=== PATIENT | female | born 1955 | race Caucasian/White ===

== ENCOUNTER 2024-08-05 09:26 | Inpatient (IN) | payer MEDICARE, SELFPAY ==
[2024-08-05] VITALS (11 sets, daily range): BP systolic 91–124; BP diastolic 53–82; PULSE 83–128; RESP 16–23; TEMP 36.3–36.4; O2SAT 97–100; BMI 15.5
--- NOTE | ~2024-08-05 | CT_ITS ---
CLINICAL INDICATION: Sepsis COMPARISON: None. TECHNIQUE: An enhanced CT of the abdomen and pelvis was performed utilizing multislice spiral [place] ue reconstructed at 5 mm slice thickness. Coronal and sagittal reconstructions were performed. This CT examination was performed utilizing dose reduction techniques. DLP: 256 mGy-cm FINDINGS/OBSERVATIONS: Lung: The lungs are clear. The heart chambers are of normal size, without pericardial effusion. Mediastinum: Multilobulated contrast enhancing mass within the superior mediastinum, corresponding to the abnormal ity seen on the today's plain radiograph. This focus appears separate from the thyroid gland (which is heterogeneous on the left, but otherwise unremarkable). This mass measures 6.4 x 4.6 x 9.3 cm (anterior to posterior x medial to lateral x cranial to caudal dimension). Extensive mediastinal lymphadenopathy is also identified extending into the right hilum and within th e subcarinal station. Soft tissues of the chest: Unremarkable. Bones of the chest: No acute fracture. No lytic or blastic lesions are identified. Liver: The liver enhances homogeneously and is not enlarged. Gallbladder and biliary system: The gallbladder is minimally distended, but otherwise unremarkable. Pancreas: The pancreas enhances homogeneously, without ductal dilatation. Spleen: The spleen enhances heterogeneously, likely secondary to bolus timing and is not enlarged. 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 The kidneys enhance homogeneously with scattered nonob structing calcifications. Adrenal glands: Unremarkable. Gastrointestinal tract: Fecal stasis is present within the colon, extending and distending the rectum with surrounding inflam matory change, findings consistent with fecal impaction. Vasculature: Trace calcified atherosclerotic disease is present. No aneurysmal dilatation. Lymph nodes: Scattered nonpathologically enlarged lymph nodes within the root of the mesentery and deep in the pel vis. Pelvic structures: The bladder is decompressed, limiting its evaluation. The uterus is not visualized. Body wall and musculoskeletal: Age appropriate degenerative disease within the thoracic and lumbosacral spine. IMPRESSION: Large middle mediastinal mass containing bulky calcifications and demonstrating contrast enhancement. Significant lymphadenopathy is identified within the right supraclavicular lymph node station. Right hilar lymphadenopathy is also noted. Scattered pathologically enlarged and morphologically suspicious lymph nodes within the base of the n viktoria. The left lobe of the thyroid gland is heterogeneous and contains bulky calcifications. Findings within the pelvis suggesting fecal impaction, as detailed above. Reviewed, dictated and finalized at location A. IMPRESSION: Large middle mediastinal mass containing bulky calcifications and demonstrating contrast enhancement. Significant lymphadenopathy is identified within the right supraclavicular lymp h node station. Right hilar lymphadenopathy is also noted. Scattered pathologically enlarged and morphologically suspicious lymph nodes wi thin the base of the neck. The left lobe of the thyroid gland is heterogeneous and contains bulky calcific ations. Findings within the pelvis suggesting fecal impaction, as detailed above.
--- NOTE | ~2024-08-05 | US_ITS ---
EXAMINATION: US biopsy lymph node DATE: 08/07/2024 12:59 INDICATION: Right supraclavicular lymphadenopathy TECHNIQUE: The procedure including the risks and benefits was discussed with the patient. Risks discu ssed included bleeding and infection. The patient understood the risks and agreed to proceed. The sk in overlying the right supraclavicular region was prepped and draped in usual sterile fashion. Anest hetic was administered with 1% lidocaine subcutaneously. An 18 gauge core biopsy needle was advanced under continuous ultrasound observation to the lesion of interest. 8 core biopsy specimens were obt ained, 5 placed in RPMI media and 3 in formalin. The needle was removed and the entry site was clean ed and dressed. Post procedure ultrasound demonstrated no hemorrhage. FINDINGS: Ultrasound images demonstrate biopsy needle advanced into a 4.2 x 2.2 x 2.6 cm right suprac lavicular lymph node. IMPRESSION: 1. Successful Ultrasound-guided biopsy of 4.2 x 2.2 x 2.6 cm right supraclavicular lymph node. Reviewed, dictated and finalized at location A. IMPRESSION: 1. Successful Ultrasound-guided biopsy of 4.2 x 2.2 x 2.6 cm right supraclavicu lar lymph node.
--- NOTE | ~2024-08-05 | XR_ITS ---
CHEST RADIOGRAPH, PA AND LATERAL CLINICAL HISTORY: weakness . COMPARISON: None available TECHNIQUE: PA and lateral views of the chest. FINDINGS Asymmetric enlargement of the superior mediastinum, right greater than left. The remainder of the cardiomediastinal silhouette is otherwise unremarkable. The lungs are clear. IMPRESSION: No focal infiltrate or effusion. Asymmetric enlargement of the superior mediastinum representing either lymphadenopathy versus intrath oracic extension of the thyroid gland for which cross-sectional imaging (noncontrast enhanced CT exam ination of the chest) may be performed for further evaluation, when the patient is clinically able. Reviewed, dictated and finalized at location A. IMPRESSION: No focal infiltrate or effusion. Asymmetric enlargement of the superior mediastinum representing either lymphade nopathy versus intrathoracic extension of the thyroid gland for which cross-sec tional imaging (noncontrast enhanced CT examination of the chest) may be perfor med for further evaluation, when the patient is clinically able.
--- NOTE | 2024-08-05 09:36 | ECG_ITS ---
Test Date: 2024-08-05 09:49:55 Measurements Intervals [place] Rate: 119 P: 75 VA: 140 QRS: 80 QRSD: 90 T: 58 QT: 315 QTc: 444 Interpretive Statements SINUS TACHYCARDIA ABNORMAL ECG No previous ECG available for comparison Electronically Signed On 08-05-2024 09:55:42 CDT by Gilberto Keating D.O.
[2024-08-05 10:15] LABS: Basophils Percent Auto 0.1 % (0.2-1.2); Eosinophils Percent Auto 0.1 % (0-4.4); Hematocrit 31.3 % (37.0-47.0); Hemoglobin 9.2 g/dL (12.0-15.0); Immature Granulocyte Absolute 0.07 K/mm3 (0.00-0.031); Immature Granulocyte Percent A 0.6 % (0-0.5); Lymphocytes Absolute Auto 0.43 K/mm3 (0.9-3.2); Lymphocytes Percent Auto 3.5 % (18.3-44.2); Mean Corpuscular HGB Conc 29.4 g/dl (32-36); Mean Corpuscular Hemoglobin 25.3 pg (26-34); Mean Corpuscular Volume 86.2 fl (80-100); Mean Platelet Volume 10.8 fl (7.4-10.4); Monocytes Absolute Auto 0.7 K/mm3 (0.1-0.6); Monocytes Percent Auto 5.5 % (2.6-8.5); Neutrophils Absolute Auto 11.2 K/mm3 (1.3-6.7); Neutrophils Percent Auto 90.2 % (45.5-73.1); Platelet Count Result 408 k/mm3 (150-375); Red Blood Count 3.63 M/mm3 (4.2-5.4); Red Cell Distribution Width 18.7 % (11.5-14.5); White Blood Count 12.4 K/mm3 (4.5-10.0)
[2024-08-05 10:27] LABS: Alanine Aminotransferase 9 U/L (6-35); Albumin Level 3.1 g/dL (3.5-5.1); Alkaline Phosphatase 189 U/L (38-126); Anion Gap 9 mmol/L (4-12); Aspartate Amino Transferase 15 U/L (14-36); Bilirubin,Total 1.3 mg/dL (0.2-1.3); Blood Urea Nitrogen 32 mg/dL (7-17); Calcium 9.4 mg/dL (8.4-10.2); Carbon Dioxide 29 mmol/L (22-30); Chloride 95 mmol/L (98-107); Estimated CRCL calculation 50 ml/min; Estimated Glomerular Filt Rate > 60; Glucose 124 mg/dL (65-110); Potassium 4.3 mmol/L (3.4-5.0); Sodium 133 mmol/L (137-145)
[2024-08-05 10:35] LABS: Platelet Estimate Increased (Adequate)
[2024-08-05 10:36] LABS: Anisocytosis 1+; Hypochromasia 1+; Microcytosis 1+ (NORMAL)
[2024-08-05 10:37] LABS: Schistocytes None Seen
--- OUTSIDE RECORDS SUMMARY | 2024-08-05 10:49 | XMS_ITS | Clinical Summary ---
Author Organization 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 Gender Identity Not on file Sexual Orientation Not on file Plan of Treatment Health Maintenance Due Date Last Done Comments Colorectal Cancer Screening Colonoscopy (10 Years) 1953 Hepatitis C 09/24/1971 DTaP, Tdap and Td Vaccines ( 1 - Tdap) 1972 Mammogram Screening 1993 Zoster Vaccines (1 of 2) 09/24/2003 Dexa Scan (General) 2018 Pneumococcal Vaccine: 50+ Ye ars (1 of 1 - PCV) 2018 COVID-19 Vaccine (2023-2 5 season) 2023 RSV Immunization or 60+ Years (1 - 1-dose 75+ series) 2028 Meningococcal B Vaccine Aged Out No l onger eligible based on patient's age to complete this topic Meningococcal Vaccine Aged Out No fitz jonas eligible based on patient's age to complete this topic RSV Immunizations Under 20 Months Aged Out No longer eligible based on patient's age to complete this topic
--- OUTSIDE RECORDS SUMMARY | 2024-08-05 10:49 | XMS_ITS | Continuity of Care Document ---
Author Organization [facility] [place] Address [address] [place] [address] Phone Care Team Providers Care Storage Garage Manager Name Role Phone Unavailable Unavailable Unavailable Allergies, Adverse Reactions, Alerts Substance Reaction Status Criticality PENICILLIN Unknown Active No Information Medications Medication Instructions Dosage Effective Dates (start - stop) Status Comments PROPRANOLOL HCL (unknown strength) Not Available - Active Procedures Procedure Date EYE EXAM, NEW PATIENT VISION REFRACTION OPTIONAL UPDATE Vision svcs frames purchases Trifocal Lens Lens Polycarb Photochromatic Tint Progressive lens per lens A/R Standard UV Lens Advance Directives Directive Yes / No Effective Date File Name No Information Encounters Encounter Description Practice Location Reason(s) For Visit Diagnoses Date Provider Providers Copied on Encounter [facility], [facility], [address], [place], [id number], [place] tel:[phone] [facility] blurred vision, glare and halos (chief complaint)b lurred vision, glare and halos (chief complaint) Myopia, bilateralAge- related nuclear cataract, right eyeCombined forms of age-related cataract, left eye No Information Family History Family Member Type Diagnosis Age At Onset Problem (finding) No family history of St roke Father Problem (finding) cataract Problem (finding) No family history of Ar thritis Mother Problem (finding) Problem (finding) No family history of He art Disease Problem (finding) No family hist ory of Macular degeneration Problem (finding) No family history of Di abetes mellitus Problem (finding) No family history of Re tinal disease Father Problem (finding) hypertension Problem (finding) No family history of Gl au[place] Problem (finding) No family history of Re spiratory disease Payers Payer name Insurance type Covered democrat ID Jodi rinaldi(s) [facility] [id number] Social History Type Description Quantity Date Captured Comments Alcohol Use Details Unknown Caffeine Use Details Unknown Tobacco Use Status Never smoked tobacco 2015 Smoking Status Never smoker Non-Smoking Tobacco Use Details : No Details Available : No Details Available Sex Female Chief Complaint And Reason For Visit From encounter dated '05/12/2015 15:30'. blurred vision, glare and halos (chief complaint). Description: The 59 Year old female presents forevaluation of blurred vision, glare and halos in the right eye and left eye. It started about 4 month(s) ago. It affects distance vision with correction OU. Pt states she noticed the change when she quit wearing her CL in Dec. Pt does not wish to continue wearing CL. The patient denies pain or discomfort OU. Pt denies eye meds or gtts OU. blurred vision, glare and halos (chief complaint) Reason For Referral Reason For Referral No Information History Of Present Illness Encounter Date Complaint History Of Prese nt Illness blurred vision, glare and halos The 59 Year old female presents for evaluation of blurred vision, glare and halos in the right eye and left eye. It started about 4 month(s) ago. It affects distance vision with correction OU. Pt states she noticed the change when she quit wearing her CL in Dec. Pt does not wish to continue wearing CL. The patient denies pain or discomfort OU. Pt denies eye meds or gtts OU. Functional Status Date Functional Assessmen t No Information Instructions Date Instruction Additional Infor fátima Impression/Plan - Ey es look healthy OU. No signs of mac degen or glaucoma. Pt has mild cataracts, we will cont to monitor. Optional gls. rx update available. RTC in 1 year unless having problems. Follow up - Return i n 1 year with [facility] for Refract T & D. 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
[2024-08-05 11:02] LABS: Bacteria Urine 4+ /hpf; Need Manual Microscopic Reviewed; RBC Urine >100 /hpf (0-2); Squamous Epithelial Cell Urine None Seen /hpf (Few); WBC Urine >100 /hpf (0-3)
--- NOTE | 2024-08-05 11:12 | ED.WEAKNESS ---
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 Patient states she has been evaluated by her PCP for her weakness and was scheduled to have outpatient CT abdomen pelvis and outpatient echocardiogram, however patient did not report to her appointments for this. When I asked her why she states ?I'm stubborn. She presents to the ED today because over the past few weeks her generalized weakness has significantly worsened. She reports dysuria that started 3 days ago, low back pain for the past several weeks she describes as burning, decreased mobility, decreased p.o. intake. She lives at home by herself. Her daughter bedside states over the past few days she has been immobile in sitting in her own urine which is abnormal for her. Denies change in mental status. The patient denies cough or congestion, chest pain or shortness of breath, neck pain, abdominal pain, N/V/D, known fevers. She does endorse a 30 lb weight loss since the fall. No personal history of cancer. Patient's daughter at bedside states the patient stop taking any of her medications including her iron supplements and antihypertensives a few months ago. Related Data Home Medications ?Medication ?Instructions ?Recorded ?Confirmed ?Last Taken ?Type No Home Medications 08/05/24 08/05/24 Unknown History Allergies Allergy/AdvReac Type Severity Reaction Status Date / Time No Known Allergies Allergy Verified 08/05/24 17:48 Review of Systems Review of Systems: All systems reviewed & are unremarkable except as noted in HPI and below PMFSH Past Medical History Medical History (Updated 08/05/24 @ 15:34 by Mary Carmen Cody PA-C) Iron deficiency anemia Hypertension Migraine headache Social History Social History (Updated 08/05/24 @ 15:35 by Mary Carmen Cody PA-C) Social History: Surrogate medical decision maker: Code status: DO NOT RESUSCITATE. Smoking status: Never smoker Alcohol intake: never Substance use: never Do You Feel Safe in your Home?: Yes Lack of Transportation: No Lack of Food: Never True Current Housing: I Have Housing Concerned About Future Housing: No Difficulty Paying Gas/Electric Bills: No Difficulty Paying for Meds: No Currently Unemployed: No Education: Decline to Answer Difficulty w/ Childcare or Family Care: No Spiritual care concerns: No Exam Narrative: GENERAL: Ill-appearing, frail, cachectic HEAD: Normocephalic, atraumatic. EYES: PERRLA and EOMI. ENT: Nares clear, no rhinorrhea or epistaxis. Mucous membranes dry NECK: Supple. No nuchal rigidity CHEST: Clear to auscultation. No respiratory distress. HEART: Regular rate and rhythm. No murmur heard. Normal peripheral pulses. ABDOMEN: Soft, nontender, nondistended, normal active bowel sounds. No rebound, guarding or rigidity EXTREMITIES: Normal range of motion. No edema. SKIN: Erythema, warmth and tenderness throughout the low back and buttock, stage 2 left ischial ulceration with cellulitic changes NEURO: No focal deficits. Alert and oriented x4 Course Vital Signs Vital signs: Vital Signs Temperature 97.4 F L 08/05/24 09:37 Pulse Rate 123 H 08/05/24 09:37 Respiratory Rate 23 H 08/05/24 09:37 Blood Pressure 102/70 08/05/24 09:37 Pulse Oximetry 100 08/05/24 09:37 Oxygen Delivery Room Air 08/05/24 09:37 Temperature 97.6 F 08/05/24 15:41 Pulse Rate 104 H 08/05/24 15:41 Respiratory Rate 19 08/05/24 15:41 Blood Pressure 108/72 08/05/24 15:41 Pulse Oximetry 99 08/05/24 15:41 Oxygen Delivery Room Air 08/05/24 09:37 MDM - Weakness MDM Narrative Medical decision making narrative: 68-year-old female with history of hypertension 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 intake, generalized malaise. See HPI for further history. Triage vitals remarkable for tachycardia 123 and tachypnea of 23. Patient is afebrile. She is cachectic and ill-appearing, lying in exam bed. A&O x4 and moving all extremities spontaneously with no lateralizing deficits. She is afebrile. She does meet SIRS criteria and was started on 30 mL/kg of fluids and broad-spectrum antibiotics. CBC with leukocytosis of 12.4, normocytic anemia with hemoglobin of 9.2 no prior for comparison. Platelets elevated at 408. Chemistries with BUN of 32, creatinine normal at 0.63. Alk-phos elevated 189, again no prior for comparison. CRP elevated to 25.2. Lactic elevated to 2.4, fluids ongoing. UA indicative of UTI with positive nitrites, greater than 100 wbc's, 3+ leuk esterase, hematuria and bacteriuria. Urine culture is pending. EKG shows sinus tachycardia rate of 119, normal CO interval, normal QRS duration, normal QTC, no ischemic changes. Troponin is undetectable. CT chest abdomen pelvis shows the following: Large middle mediastinal mass containing bulky calcifications and demonstrating contrast enhancement. Significant lymphadenopathy is identified within the right supraclavicular lymph node station. Right hilar lymphadenopathy is also noted. Scattered pathologically enlarged and morphologically suspicious lymph nodes within the base of the neck. The left lobe of the thyroid gland is heterogeneous and contains bulky calcifications. Findings within the pelvis suggesting fecal impaction, as detailed above. Patient and family updated on results heart rate has improved to 102 bpm, blood pressures improved to 105/65. Patient is uncertain of her last bowel movement. She is having abdominal pain, no obstipation. Fecal disimpaction performed with large amount of stool removed. I discussed CT findings with radiologist, Dr. Adame, who agrees to perform ultrasound guided biopsy of right supraclavicular lymph nodes tomorrow. Order has been placed. Discussed case with hospitalist DYLON Lentz who agrees to admission. Patient would like to be DNR/DNI. Lab Data 08/05/24 10:10 08/05/24 10:10 Labs: Lab Results 08/05/24 08/05/24 08/05/24 Range/Units 10:09 10:10 11:27 WBC 12.4 H (4.5-10.0) K/mm3 RBC 3.63 L (4.2-5.4) M/mm3 Hgb 9.2 L (12.0-15.0) g/dL Hct 31.3 L (37.0-47.0) % MCV 86.2 (80-100) fl MCH 25.3 L (26-34) pg MCHC 29.4 L (32-36) g/dl RDW 18.7 H (11.5-14.5) % Plt Count 408 H (150-375) k/mm3 MPV 10.8 H (7.4-10.4) fl Immature Gran % (Auto) 0.6 H (0-0.5) % Neut % (Auto) 90.2 H (45.5-73.1) % Lymph % (Auto) 3.5 L (18.3-44.2) % Sequoyah % (Auto) 5.5 (2.6-8.5) % Eos % (Auto) 0.1 (0-4.4) % Baso % (Auto) 0.1 L (0.2-1.2) % Lymph # (Auto) 0.43 L (0.9-3.2) K/mm3 Sequoyah # (Auto) 0.7 H (0.1-0.6) K/mm3 Eos # (Auto) 0.0 (0-0.3) K/mm3 Baso # (Auto) 0.0 (0.0-0.1) K/mm3 Abs Immat Gran (auto) 0.07 H (0.00-0.031) K/mm3 Absolute Neuts (auto) 11.2 H (1.3-6.7) K/mm3 Absolute Nucleated RBC 0.000 (0.0-0.012) K/mm3 Band Neutrophils % Not Reportable Nucleated RBC % 0.0 (0.0-0.2) % Platelet Estimate Increased (Adequate) Hypochromasia 1+ Anisocytosis 1+ Microcytosis 1+ (NORMAL) Schistocytes None seen PT 16.0 H (11.1-14.7) Seconds INR 1.2 APTT 41.4 H (22.3-36.8) Seconds Sodium 133 L (137-145) mmol/L Potassium 4.3 (3.4-5.0) mmol/L Chloride 95 L (98-107) mmol/L Carbon Dioxide 29 (22-30) mmol/L Anion Gap 9 (4-12) mmol/L BUN 32 H (7-17) mg/dL Creatinine 0.63 L (0.7-1.0) mg/dL Estim Creat Clear Calc 50 ml/min Estimated GFR > 60 (59 - ) Glucose 124 H (65-110) mg/dL Lactic Acid 2.4 H (0.7-2.0) mmol/L Calcium 9.4 (8.4-10.2) mg/dL Total Bilirubin 1.3 (0.2-1.3) mg/dL AST 15 (14-36) U/L ALT 9 (6-35) U/L Alkaline Phosphatase 189 H (38-126) U/L Troponin I < 0.012 (0.000-0.034) ng/mL C-Reactive Protein 25.2 H (<1.0) mg/dL Total Protein 8.0 (6.3-8.2) g/dL Albumin 3.1 L (3.5-5.1) g/dL Urine Color Red H (Yellow) Urine Appearance Turbid H (Clear) Urine pH 8.0 (5.0-9.0) Ur Specific Browder 1.016 (1.001-1.035) Urine Protein 3+ H (Negative) mg/dL Urine Glucose (UA) Negative (Negative) mg/dL Urine Ketones TNP Ur Blood (Man) 3+ H (Negative) Urine Nitrate Positive H (Negative) Urine Bilirubin TNP Urine Urobilinogen TNP Add Ur Microanalysis Reviewed Leukocyte Esterase Rfl 3+ H (Negative) QUOC/UL Urine RBC >100 H (0-2) /hpf Urine WBC >100 H (0-3) /hpf Ur Squamous Epith Cells None seen (Few) /hpf Urine Bacteria 4+ H /hpf Urine Casts 3-5 Influenza A (RT-PCR) (Negative) Influenza B (RT-PCR) (Negative) RSV (RT-PCR) (Negative) SARS-CoV-2 RNA (RT-PCR) (Negative) 08/05/24 08/05/24 Range/Units 13:21 14:16 WBC (4.5-10.0) K/mm3 RBC (4.2-5.4) M/mm3 Hgb (12.0-15.0) g/dL Hct (37.0-47.0) % MCV (80-100) fl MCH (26-34) pg MCHC (32-36) g/dl RDW (11.5-14.5) % Plt Count (150-375) k/mm3 MPV (7.4-10.4) fl Immature Gran % (Auto) (0-0.5) % Neut % (Auto) (45.5-73.1) % Lymph % (Auto) (18.3-44.2) % Sequoyah % (Auto) (2.6-8.5) % Eos % (Auto) (0-4.4) % Baso % (Auto) (0.2-1.2) % Lymph # (Auto) (0.9-3.2) K/mm3 Sequoyah # (Auto) (0.1-0.6) K/mm3 Eos # (Auto) (0-0.3) K/mm3 Baso # (Auto) (0.0-0.1) K/mm3 Abs Immat Gran (auto) (0.00-0.031) K/mm3 Absolute Neuts (auto) (1.3-6.7) K/mm3 Absolute Nucleated RBC (0.0-0.012) K/mm3 Band Neutrophils % Nucleated RBC % (0.0-0.2) % Platelet Estimate (Adequate) Hypochromasia Anisocytosis Microcytosis (NORMAL) Schistocytes PT (11.1-14.7) Seconds INR APTT (22.3-36.8) Seconds Sodium (137-145) mmol/L Potassium (3.4-5.0) mmol/L Chloride (98-107) mmol/L Carbon Dioxide (22-30) mmol/L Anion Gap (4-12) mmol/L BUN (7-17) mg/dL Creatinine (0.7-1.0) mg/dL Estim Creat Clear Calc ml/min Estimated GFR (59 - ) Glucose (65-110) mg/dL Lactic Acid 1.4 (0.7-2.0) mmol/L Calcium (8.4-10.2) mg/dL Total Bilirubin (0.2-1.3) mg/dL AST (14-36) U/L ALT (6-35) U/L Alkaline Phosphatase (38-126) U/L Troponin I (0.000-0.034) ng/mL C-Reactive Protein (<1.0) mg/dL Total Protein (6.3-8.2) g/dL Albumin (3.5-5.1) g/dL Urine Color (Yellow) Urine Appearance (Clear) Urine pH (5.0-9.0) Ur Specific Browder (1.001-1.035) Urine Protein (Negative) mg/dL Urine Glucose (UA) (Negative) mg/dL Urine Ketones Ur Blood (Man) (Negative) Urine Nitrate (Negative) Urine Bilirubin Urine Urobilinogen Add Ur Microanalysis Leukocyte Esterase Rfl (Negative) QUOC/UL Urine RBC (0-2) /hpf Urine WBC (0-3) /hpf Ur Squamous Epith Cells (Few) /hpf Urine Bacteria /hpf Urine Casts Influenza A (RT-PCR) Negative (Negative) Influenza B (RT-PCR) Negative (Negative) RSV (RT-PCR) Negative (Negative) SARS-CoV-2 RNA (RT-PCR) Negative (Negative) Discharge Plan Discharge Clinical Impression: Fecal impaction, Mediastinal mass, Abnormal imaging of thyroid Sepsis Qualifiers: Sepsis type: sepsis due to unspecified organism Sepsis acute organ dysfunction status: without acute organ dysfunction Qualified Code(s): A41.9 - Sepsis, unspecified organism UTI (urinary tract infection) Qualifiers: Urinary tract infection type: acute cystitis Hematuria presence: with hematuria Qualified Code(s): N30.01 - Acute cystitis with hematuria Cellulitis Qualifiers: Site of cellulitis: buttock Qualified Code(s): L03.317 - Cellulitis of buttock Decubitus ulcer of ischium, stage 2 Qualifiers: Laterality: left Qualified Code(s): L89.322 - Pressure ulcer of left buttock, stage 2 Patient Disposition: Still a Patient Condition: Stable
[2024-08-05 11:13] LABS: Add Urine Microscopic? YES; Blood Urine 3+ (Negative); Glucose Urine UA Negative (Negative); Leukocyte Esterase Ur 3+ LEU/UL (Negative); Nitrate Urine Positive (Negative); Protein Urine 3+ mg/dL (Negative)
[2024-08-05] MEDS: SODIUM CHLORIDE 0.9% IV 400 ML 999 ML IV CONT (11:29)
[2024-08-05] MEDS: SODIUM CHLORIDE 0.9% IV 1,000 ML 999 ML IV CONT (11:29)
[2024-08-05] MEDS: CEFEPIME 2 GM/NS 50 ML 2 GM/50 ML BAG IVPB (11:36)
[2024-08-05 11:49] LABS: Lactic Acid Reflex 2.4 mmol/L (0.7-2.0)
[2024-08-05 11:54] LABS: Troponin I < 0.012 ng/mL (0.000-0.034)
[2024-08-05 12:07] LABS: INR 1.2
[2024-08-05 12:08] LABS: Partial Thromboplastin Time 41.4 Seconds (22.3-36.8)
[2024-08-05 12:10] LABS: Appearance Urine Turbid (Clear); Color Urine Red (Yellow); Specific Grav Ur 1.016 (1.001-1.035)
[2024-08-05] MEDS: VANCOMYCIN 1,000 MG/NS 250 ML 1,000 MG/250 ML BAG 250 MG IVPB (12:11)
[2024-08-05 12:14] LABS: CRP 25.2 mg/dL (<1.0)
--- NOTE | 2024-08-05 13:10 | PC.NURSE ---
This RN received call from Ultrasound who state they are unable to do pt biopsy today, EDP made aware
[2024-08-05 13:37] LABS: Reflex Lactic Acid Yes or No Add Lactic
--- NOTE | 2024-08-05 13:40 | PM.IMHP ---
H&P: HPI History of Present Illness Date/Time: 08/05/24 15:00 Chief Complaint: Weakness. Narrative: This is a pleasant 68-year-old female with history of migraine headaches, hypertension, and iron deficiency anemia who presented to the emergency department via EMS with complaints of weakness. She has lost about 30 lb unintentionally since fall 2023 which she attributes to a poor appetite. She stopped taking her blood pressure medications as she was frequently getting lightheaded and dizzy with standing although that continues. She has become increasingly weak and she has been essentially immobile for nearly 2 weeks. Her primary care provider ordered labs and imaging but she never had them done ?because I am stubborn.? Daughter insisted that she come in today for evaluation after she found the patient sitting in urine soaked clothing. She endorses mild dysuria and urinary frequency. She has not had a good bowel movement for quite some time. She also admits to two falls in the last month or so, the last being about 2 weeks ago. She did not sustain any injuries in the fall but she does report that she hit her head on the ground in the fall 2 weeks ago. She denies fever, night sweats, headache, vertigo, visual changes, focal weakness, paresthesias, cold and flu symptoms, chest and pleuritic pain, cough, shortness of breath, abdominal pain, dysphagia, nausea, vomiting, diarrhea, lower extremity edema, and calf pain. In the ED: Vital signs on arrival include a temperature of 97.4?, blood pressure 102/70, pulse 123, respiratory rate 23, SpO2 100% on room air. Labs were significant for WBC count of 12.4, hemoglobin 9.2, platelet 408, sodium 133, chloride 95, BUN 32, creatinine 0.63, lactic acid 2.4, CRP 25.2, albumin 3.1. Urine was positive for 3+ protein, 3+ blood, nitrates, 3+ leukocyte esterase, greater than 100 RBC and WBC, and 4+ bacteria. CT scan of the chest, abdomen, and pelvis showed a large middle mediastinal mass, bulky calcifications in the left lobe of the thyroid, significant lymphadenopathy in the hilum and neck, and findings of fecal impaction. She received 30 mL/kg IV fluid bolus, cefepime 2 g, and vancomycin 1000 mg. She is being admitted in this setting for further treatment and evaluation. Review of Systems Review of Systems: 12 systems were reviewed and are negative except for as per HPI. [facility] Past Medical History Medical History Iron deficiency anemia Hypertension Migraine headache Surgical History Surgical History (Updated 08/05/24 @ 21:34 by Mary Carmen Cody PA-C) History of section Social History Social History (Updated 08/05/24 @ 21:34 by Mary Carmen Cody PA-C) Social History: Surrogate medical decision maker: Soraida Baron, daughter. Code status: DO NOT RESUSCITATE. Smoking status: Never smoker Alcohol intake: never Substance use: never Do You Feel Safe in your Home?: Yes Lack of Transportation: No Lack of Food: Never True Current Housing: I Have Housing Concerned About Future Housing: No Difficulty Paying Gas/Electric Bills: No Difficulty Paying for Meds: No Currently Unemployed: No Education: Decline to Answer Difficulty w/ Childcare or Family Care: No Living arrangements: alone Additional living arrangements comments: Lives alone in [place]. Occupation/Education: retired Additional occupation/education comments: [employer]. Spiritual care concerns: No Meds Home Medications and Allergies Home Medications ?Medication ?Instructions ?Recorded ?Confirmed ?Type No Home Medications 08/05/24 08/05/24 History Allergies Allergy/AdvReac Type Severity Reaction Status Date / Time No Known Allergies Allergy Verified 08/05/24 17:48 Vital Signs Vital Signs - 24 hr 08/05/24 09:37 08/05/24 09:44 08/05/24 10:33 Temperature 97.4 F L Pulse Rate 123 H 122 H 123 H Respiratory Rate 23 H 23 H Blood Pressure 102/70 97/78 L Pulse Oximetry 100 100 Oxygen Delivery Room Air 08/05/24 11:07 08/05/24 11:37 08/05/24 12:11 Temperature Pulse Rate 128 H 110 H 102 H Respiratory Rate 18 17 Blood Pressure 98/77 L 124/79 105/53 L Pulse Oximetry 100 100 99 Oxygen Delivery Exam Narrative: General: Cachectic, frail, mildly ill-appearing female in the semi-[place] position in bed. Weight: 45.1 kg. BMI: 15.6. HEENT: PERRL, EOMI. Sclera anicteric. Dry mucous membranes. Neck: Supple. Fullness in the right supraclavicular region. Thyroid appears enlarged, on the left mainly. Respiratory: Respirations are nonlabored. Lungs sound clear to auscultation. Cardiovascular: Regular rate and rhythm with S1-S2. Gastrointestinal: Abdomen is soft, scaphoid, and nontender with positive bowel sounds. Skin: Warm and dry. Stage II pressure wound on the left ischium. Extremities: No cyanosis, clubbing, or edema. Radial and pedal pulses intact. Neurological: Alert and oriented. Cranial nerves 2-12 are grossly intact. Generalized weakness without gross focal findings. Psychiatric: Pleasant and cooperative with normal mood and affect. H&P: Results Labs Labs: Short CBC 08/05/24 Range/Units 10:10 WBC 12.4 H (4.5-10.0) K/mm3 Hgb 9.2 L (12.0-15.0) g/dL Hct 31.3 L (37.0-47.0) % Plt Count 408 H (150-375) k/mm3 BMP 08/05/24 10:10 Sodium 133 L Potassium 4.3 Chloride 95 L Carbon Dioxide 29 BUN 32 H Creatinine 0.63 L Glucose 124 H Calcium 9.4 Cardiac Enzymes 08/05/24 Range/Units 10:09 Troponin I < 0.012 (0.000-0.034) ng/mL Liver Function 08/05/24 Range/Units 10:10 Total Bilirubin 1.3 (0.2-1.3) mg/dL AST 15 (14-36) U/L ALT 9 (6-35) U/L Alkaline Phosphatase 189 H (38-126) U/L Albumin 3.1 L (3.5-5.1) g/dL Urine 08/05/24 Range/Units 10:10 Urine Color Red H (Yellow) Urine Appearance Turbid H (Clear) Urine pH 8.0 (5.0-9.0) Ur Specific [place] 1.016 (1.001-1.035) Urine Protein 3+ H (Negative) mg/dL Urine Glucose (UA) Negative (Negative) mg/dL Imaging Chest X-Ray 08/05/24 10:51 IMPRESSION: 1. No focal infiltrate or effusion. 2. Asymmetric enlargement of the superior mediastinum representing either lymphadenopathy versus intrathoracic extension of the thyroid gland for which cross-sectional imaging (noncontrast enhanced CT examination of the chest) may be performed for further evaluation, when the patient is clinically able. Chest/Abdomen/Pelvis CT 08/05/24 12:05 IMPRESSION: 1. Large middle mediastinal mass containing bulky calcifications and demonstrating contrast enhancement. 2. Significant lymphadenopathy is identified within the right supraclavicular lymph node station. 3. Right hilar lymphadenopathy is also noted. 4. Scattered pathologically enlarged and morphologically suspicious lymph nodes within the base of the neck. 5. The left lobe of the thyroid gland is heterogeneous and contains bulky calcifications. 6. Findings within the pelvis suggesting fecal impaction, as detailed above. Assessment and Plan Assessment and plan (1) Sepsis: Qualifiers: Sepsis acute organ dysfunction status: without acute organ dysfunction Sepsis type: sepsis due to unspecified organism Qualified Code(s): A41.9 - Sepsis, unspecified organism Code(s): A41.9 - Sepsis, unspecified organism Status: Acute (2) Urinary tract infection: Code(s): N39.0 - Urinary tract infection, site not specified Status: Acute (3) Mediastinal mass: Code(s): J98.59 - Other diseases of mediastinum, not elsewhere classified Status: Acute (4) Decubitus ulcer of ischium, stage 2: Qualifiers: Laterality: left Qualified Code(s): L89.322 - Pressure ulcer of left buttock, stage 2 Code(s): L89.302 - Pressure ulcer of unspecified buttock, stage 2 Status: Acute (5) Abnormal imaging of thyroid: Code(s): R93.89 - Abnormal findings on diagnostic imaging of other specified body structures Status: Acute (6) Fecal impaction: Code(s): K56.41 - Fecal impaction Status: Acute Plan The patient presented to the emergency department with complaints of weakness and unintentional weight loss as detailed in HPI. Labs, imaging, EKG, and all reports were personally reviewed. She meets sepsis criteria with tachycardia, tachypnea, leukocytosis, and elevated lactic acid level in the setting of what appears to be urinary tract infection. She received 30 mL/kg IV fluid bolus in the ED with elevation of her lactic acid level. Blood pressures have been running at the lower end of normal but are stable. Blood and urine cultures are pending. She received cefepime 2 g and vancomycin 1000 mg in the ED and has been started on ceftriaxone 1 g Q 24 hours and vancomycin to cover for urinary tract infection and possible infection of the left hip decubitus ulcer. CT scan shows a large medial mediastinal mass and ultrasound-guided biopsy of a supraclavicular lymph node has been ordered for tomorrow for diagnosis. At this time she wishes for her code status to be DO NOT RESUSCITATE but would like to pursue diagnosis and treatment. Soapsuds enema given in the ED. Start daily MiraLax. Findings and treatment plan were discussed with the patient and her daughter. Questions were solicited and answered to satisfaction. The patient's medical management will be taken over by the hospitalist team in a.m. Quality VTE Prophylaxis VTE prophylaxis: mechanical ordered If No VTE Prophylaxis Answer both mechanical and pharmacologic: Reason no pharmacologic proph: medical contraindication (biopsy scheduled for tomorrow) The patient has been admitted under observation status. Hospitalist [facility] Advance Care Plan I have confirmed that the patient's Advanced Care Plan is present, code status is documented, or surrogate decision maker is listed in patient medical record.: Yes Medication Reconciliation I have utilized all available resources to obtain, update and review the patients current medications (includes all prescriptions, OTC, herbals, cannabis, and nutritional supplements).: Yes
[2024-08-05 14:07] LABS: Influenza A QL RT-PCR Negative (Negative); Influenza B QL RT-PCR Negative (Negative); RSV RNA, RT-PCR Negative (Negative); SARS-CoV-2 RNA PCR Negative (Negative)
[2024-08-05 14:33] LABS: Lactic Acid 1.4 mmol/L (0.7-2.0)
--- NOTE | 2024-08-05 15:39 | PC.NURSE ---
This RN attempted to contact pt daughter/POA with pt permission at [phone] received no answer, left message informing her of pt admission and room number
--- NOTE | 2024-08-05 17:41 | ADMGEN ---
This patient, Lakshmi Cardoza, was admitted to [facility] Surg Room 321-01. Patient/family oriented to hospital policies and general routines including ID bracelet, bed and alarms, visiting hours, pain management, procedures, bathroom and other care routines, personal items, smoking policy, room service/diet, and visiting hours. Information on how to activate the Rapid Response Team has been discussed. Patient/Family are encouraged to report perceived risks to care and to ask questions if they do not understand what they are told or what they should do.
[2024-08-06] VITALS (18 sets, daily range): BP systolic 95–132; BP diastolic 41–72; PULSE 65–100; RESP 16–18; TEMP 36.1–36.6; O2SAT 93–100; BMI 15.3
[2024-08-06 06:02] LABS: Mean Corpuscular HGB Conc 28.1 g/dl (32-36); Mean Corpuscular Hemoglobin 25.4 pg (26-34); Mean Corpuscular Volume 90.1 fl (80-100); Mean Platelet Volume 11.8 fl (7.4-10.4); Platelet Count Result 290 k/mm3 (150-375); Red Blood Count 2.13 M/mm3 (4.2-5.4); Red Cell Distribution Width 19.4 % (11.5-14.5); White Blood Count 11.2 K/mm3 (4.5-10.0)
[2024-08-06 06:15] LABS: Anion Gap 8 mmol/L (4-12); Blood Urea Nitrogen 22 mg/dL (7-17); Calcium 8.3 mg/dL (8.4-10.2); Carbon Dioxide 22 mmol/L (22-30); Chloride 102 mmol/L (98-107); Estimated CRCL calculation 67 ml/min; Estimated Glomerular Filt Rate > 60; Glucose 124 mg/dL (65-110); Magnesium 2.1 mg/dL (1.6-2.3); Potassium 3.1 mmol/L (3.4-5.0); Sodium 132 mmol/L (137-145)
[2024-08-06 06:17] LABS: INR 1.6; Prothrombin Time 19.2 Seconds (11.1-14.7)
[2024-08-06 06:22] LABS: Hematocrit 19.2 % (37.0-47.0)
[2024-08-06 06:23] LABS: Hemoglobin 5.4 g/dL (12.0-15.0)
[2024-08-06 07:22] LABS: Free T4 Free Thyroxine Reflex 1.43 ng/dL (0.78-2.19)
[2024-08-06] MEDS: SODIUM CHLORIDE 0.9% IV 250 ML 30 ML IV CONT (08:53)
--- NOTE | 2024-08-06 08:59 | P.PNIM_ITS ---
Progress Note: A&P Assessment and Plan (1) Sepsis: Qualifiers: Sepsis acute organ dysfunction status: without acute organ dysfunction Sepsis type: sepsis due to unspecified organism Qualified Code(s): A41.9 - S epsis, unspecified organism Code(s): A41.9 - Sepsis, unspecified organism Status: Acute (2) Urinary tract infection: Code(s): N39.0 - Urinary tract infection, site not specified Status: Acute (3) Mediastinal mass: Code(s): J98.59 - Other diseases of mediastinum, not elsewhere classified Status: Acute (4) Decubitus ulcer of ischium, stage 2: Qualifiers: Laterality: left Qualified Code(s): L89.322 - Pressure ulcer of left buttock, stage 2 Code(s): L89.302 - Pressure ulcer of unspecified buttock, stage 2 Status: Acute (5) Abnormal imaging of thyroid: Code(s): R93.89 - Abnormal findings on diagnostic imaging of other specified body structures Status: Acute (6) Fecal impaction: Code(s): K56.41 - Fecal impaction Status: Acute Plan The patient presented to the emergency department with complaints of weakness and unintentional weight loss Severe sepsis AND UTI She meets sepsis criteria with tachycardia, tachypnea, leukocytosis, and elevated lactic acid level resulting from urinary tract infection. received 30 mL/kg IV fluid bolus in the ED with elevation of her lactic acid level. Hypotension upon arrival to the ED Received fluid resuscitation blood pressure became stable Blood pressures have been running at the lower end of normal but are stable. Blood and urine cultures are pending. received cefepime 2 g and vancomycin 1000 mg in the ED changed to ceftriaxone 1 g Q 24 hours and vancomycin to cover for urinary tract infection and possible infection of the left hip decubitus ulcer. infection of the left hip decubitus ulcer. 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 Well- nourished. - EYES: EOMI. Anicteric. - HENT: Moist mucous membranes. - LUNGS: Clear to auscultation bilateral ly, no wheezing, rhonchi, or rales. - CARDIOVASCULAR: Regular rate and rhyth m. No murmur. No JVD. - ABDOMEN: Soft, non-tender and non-dist ended. No palpable masses. - EXTREMITIES: No edema. Peripheral puls es 2+. Non-tender. - NEUROLOGIC: No focal neurological defi cits. CN II-XII grossly intact. - PSYCHIATRIC: Awake, Alert and oriented x 3. Appropriate mood and affect. - SKIN: Stage II sacral decubitus ulcer - LYMPH: No cervical lymphadenopathy. Objective Data Vital Signs Vital Signs: Vital Signs - 24 hr 08/05/24 09:37 08/05/24 09:44 08/05/24 10:33 Temperature 97.4 F L Pulse Rate 123 H 122 H 123 H Respiratory Rate 23 H 23 H Blood Pressure 102/70 97/78 L Pulse Oximetry 100 100 Oxygen Delivery Room Air 08/05/24 11:07 08/05/24 11:37 08/05/24 12:11 Temperature Pulse Rate 128 H 110 H 102 H Respiratory Rate 18 17 Blood Pressure 98/77 L 124/79 105/53 L Pulse Oximetry 100 100 99 Oxygen Delivery 08/05/24 13:00 08/05/24 14:12 08/05/24 14:47 Temperature 97.4 F L Pulse Rate 101 H 105 H 114 H Respiratory Rate 16 18 22 H Blood Pressure 100/60 99/60 L 98/82 L Pulse Oximetry 99 100 100 Oxygen Delivery 08/05/24 15:41 08/05/24 20:15 08/06/24 05:11 Temperature 97.6 F 97.5 F L 97.6 F Pulse Rate 104 H 83 65 Respiratory Rate 19 16 18 Blood Pressure 108/72 91/53 L 95/55 L Pulse Oximetry 99 97 93 Oxygen Delivery 08/06/24 08:50 Temperature 97.7 F Pulse Rate 87 Respiratory Rate 18 Blood Pressure 100/57 L Pulse Oximetry 100 Oxygen Delivery Intake/Output Intake/Output: Intake & Output 08/03/24 08/04/24 08/05/24 08/06/24 23:59 23:59 23:59 23:59 Intake Total 2200 0 Output Total 75 200 Balance 2125 -200 Meds/Results Medications: Active Medications Generic Name Dose Route Start Last Admin Trade Name Freq PRN Reason Stop Dose Admin Acetaminophen 650 mg 08/05/24 15:39 Acetaminophen 325 Mg Tablet PO Q6H PRN Mild Pain (1-3) or Fever Ceftriaxone Sodium 1 gm in 50 mls @ 100 mls/hr 08/05/24 16:00 08/05/24 17:40 Rocephin 1 Gm/Ns 50 Ml IVPB 100 mls/hr Q24H KANNAN Administration Sodium Chloride 250 mls @ 30 mls/hr 08/06/24 06:32 08/06/24 08:53 Normal Saline Iv IV CONT 08/06/24 14:51 30 mls/hr .[id number] STA Administration Vancomycin HCl 1,000 mg in 250 mls @ 250 mls/hr 08/06/24 09:00 Vancomycin 1,000 Mg/Ns 250 Ml IVPB Q18H KANNAN Polyethylene Glycol 17 gm 08/06/24 09:00 Polyethylene Glycol 3350 17 Gm Powd.Pack PO QAM [facility] Radiology Results: ITS Impressions Chest X-Ray 08/05/24 10:51 IMPRESSION: No focal infiltrate or effusion. Asymmetric enlargement of the superior mediastinum representing either lymphadenopathy versus intrathoracic extension of the thyroid gland for which cross-sectional imaging (noncontrast enhanced CT examination of the chest) may be performed for further evaluation, when the patient is clinically able. Chest/Abdomen/Pelvis CT 08/05/24 12:05 IMPRESSION: Large middle mediastinal mass containing bulky calcifications and demonstrating contrast enhancement. Significant lymphadenopathy is identified within the right supraclavicular lymph node station. Right hilar lymphadenopathy is also noted. Scattered pathologically enlarged and morphologically suspicious lymph nodes within the base of the neck. The left lobe of the thyroid gland is heterogeneous and contains bulky calcifications. Findings within the pelvis suggesting fecal impaction, as detailed above. Labs Labs: Laboratory Results - last 24 hr 08/05/24 08/05/24 08/05/24 10:09 10:10 11:27 WBC 12.4 H RBC 3.63 L Hgb 9.2 L Hct 31.3 L MCV 86.2 MCH 25.3 L MCHC 29.4 L RDW 18.7 H Plt Count 408 H MPV 10.8 H Immature Gran % (Auto) 0.6 H Neut % (Auto) 90.2 H Lymph % (Auto) 3.5 L [place] % (Auto) 5.5 Eos % (Auto) 0.1 Baso % (Auto) 0.1 L Lymph # (Auto) 0.43 L [place] # (Auto) 0.7 H Eos # (Auto) 0.0 Baso # (Auto) 0.0 Abs Immat Gran (auto) 0.07 H Absolute Neuts (auto) 11.2 H Absolute Nucleated RBC 0.000 Band Neutrophils % Not Reportable Nucleated RBC % 0.0 Platelet Estimate Increased Hypochromasia 1+ Anisocytosis 1+ Microcytosis 1+ Schistocytes None seen PT 16.0 H INR 1.2 APTT 41.4 H Sodium 133 L Potassium 4.3 Chloride 95 L Carbon Dioxide 29 Anion Gap 9 BUN 32 H Creatinine 0.63 L Estim Creat Clear Calc 50 Estimated GFR > 60 Glucose 124 H Lactic Acid 2.4 H Calcium 9.4 Magnesium Total Bilirubin 1.3 AST 15 ALT 9 Alkaline Phosphatase 189 H Troponin I < 0.012 C-Reactive Protein 25.2 H Total Protein 8.0 Albumin 3.1 L TSH (Reflex) Free T4 Urine Color Red H Urine Appearance Turbid H Urine pH 8.0 Ur Specific [place] 1.016 Urine Protein 3+ H Urine Glucose (UA) Negative Urine Ketones TNP Ur Blood (Man) 3+ H Urine Nitrate Positive H Urine Bilirubin TNP Urine Urobilinogen TNP Add Ur Microanalysis Reviewed Leukocyte Esterase Rfl 3+ H Urine RBC >100 H Urine WBC >100 H Ur Squamous Epith Cells None seen Urine Bacteria 4+ H Urine Casts 3-5 Influenza A (RT-PCR) Influenza B (RT-PCR) RSV (RT-PCR) SARS-CoV-2 RNA (RT-PCR) Blood Type Antibody Screen Crossmatch 08/05/24 08/05/24 08/06/24 13:21 14:16 05:54 WBC 11.2 H RBC 2.13 L Hgb 5.4 L* D Hct 19.2 L* MCV 90.1 MCH 25.4 L MCHC 28.1 L RDW 19.4 H Plt Count 290 MPV 11.8 H Immature Gran % (Auto) Neut % (Auto) Lymph % (Auto) [place] % (Auto) Eos % (Auto) Baso % (Auto) Lymph # (Auto) [place] # (Auto) Eos # (Auto) Baso # (Auto) Abs Immat Gran (auto) Absolute Neuts (auto) Absolute Nucleated RBC Band Neutrophils % Nucleated RBC % Platelet Estimate Hypochromasia Anisocytosis Microcytosis Schistocytes PT 19.2 H INR 1.6 APTT Sodium 132 L Potassium 3.1 L Chloride 102 Carbon Dioxide 22 Anion Gap 8 BUN 22 H D Creatinine 0.45 L Estim Creat Clear Calc 67 Estimated GFR > 60 Glucose 124 H Lactic Acid 1.4 Calcium 8.3 L Magnesium 2.1 Total Bilirubin AST ALT Alkaline Phosphatase Troponin I C-Reactive Protein Total Protein Albumin TSH (Reflex) 4.320 Free T4 1.43 Urine Color Urine Appearance Urine pH Ur Specific [place] Urine Protein Urine Glucose (UA) Urine Ketones Ur Blood (Man) Urine Nitrate Urine Bilirubin Urine Urobilinogen Add Ur Microanalysis Leukocyte Esterase Rfl Urine RBC Urine WBC Ur Squamous Epith Cells Urine Bacteria Urine Casts Influenza A (RT-PCR) Negative Influenza B (RT-PCR) Negative RSV (RT-PCR) Negative SARS-CoV-2 RNA (RT-PCR) Negative Blood Type Antibody Screen Crossmatch 08/06/24 06:48 WBC RBC Hgb Hct MCV MCH MCHC RDW Plt Count MPV Immature Gran % (Auto) Neut % (Auto) Lymph % (Auto) [place] % (Auto) Eos % (Auto) Baso % (Auto) Lymph # (Auto) [place] # (Auto) Eos # (Auto) Baso # (Auto) Abs Immat Gran (auto) Absolute Neuts (auto) Absolute Nucleated RBC Band Neutrophils % Nucleated RBC % Platelet Estimate Hypochromasia Anisocytosis Microcytosis Schistocytes PT INR APTT Sodium Potassium Chloride Carbon Dioxide Anion Gap BUN Creatinine Estim Creat Clear Calc Estimated GFR Glucose Lactic Acid Calcium Magnesium Total Bilirubin AST ALT Alkaline Phosphatase Troponin I C-Reactive Protein Total Protein Albumin TSH (Reflex) Free T4 Urine Color Urine Appearance Urine pH Ur Specific [place] Urine Protein Urine Glucose (UA) Urine Ketones Ur Blood (Man) Urine Nitrate Urine Bilirubin Urine Urobilinogen Add Ur Microanalysis Leukocyte Esterase Rfl Urine RBC Urine WBC Ur Squamous Epith Cells Urine Bacteria Urine Casts Influenza A (RT-PCR) Influenza B (RT-PCR) RSV (RT-PCR) SARS-CoV-2 RNA (RT-PCR) Blood Type O Positive Antibody Screen Negative Crossmatch See Detail
[2024-08-06 09:02] LABS: Total Triiodothyronine (T3) 0.82 NG/ML (0.97-1.69)
[2024-08-06] MEDS: VANCOMYCIN 1,000 MG/NS 250 ML 1,000 MG/250 ML BAG 250 MG IVPB (09:23)
[2024-08-06 09:33] LABS: Reticulocyte Hemoglobin Conten 29.2 pg (28.2-36.6); Reticulocytes Absolute 0.08 10^6/uL (0.02-0.10)
[2024-08-06 10:26] LABS: Iron 30 ug/dL (37-170)
[2024-08-06 10:36] LABS: Percent Iron Saturation 13 % (20-50)
--- NOTE | 2024-08-06 16:33 | WPDGICN ---
Assessment and Plan Assessment and plan (1) Iron deficiency anemia: Code(s): D50.9 - Iron deficiency anemia, unspecified Status: Acute Assessment and Plan: The patient presents with severe cachexia and profound iron deficiency anemia. The primary differential diagnoses include metastatic gastric versus colon cancer. Given the history of constipation and imaging suggestive of impaction, a 2-day bowel preparation will be initiated for a colonoscopy and EGD, to be performed this coming Sunday. GI Consult Note Consult date/time: 08/06/24 16:33 Reason for consult: Severe anemia - possible metastatic disease HPI: This is a consultation for Lakshmi Cardoza, a 68-year-old female admitted yesterday with a history of hypertension and newly diagnosed iron deficiency. The patient presented to the emergency department with extreme weakness and was found to be cachectic. She met diagnostic criteria for urosepsis based on leukocytosis, abnormal vital signs, and elevated lactic acid. Antibiotic therapy with ceftriaxone and vancomycin was initiated. The patient also has a decubitus ulcer. The indication for consultation is severe anemia and iron deficiency. Pertinent laboratory values include: White blood cell count 11.2, hemoglobin 5.4, hematocrit 19.2, platelet count 290, sodium 132, potassium 3.1, BUN 22, creatinine 0.45, iron saturation 13%, ferritin 980. Imaging of the abdomen and pelvis via CT scan demonstrated a large mediastinal mass, multiple right hilar lymphadenopathies, and right supraclavicular lymphadenopathies. The patient reports no melena, hematemesis, hematochezia, or rectal bleeding, and denies abdominal pain. Her bowel history is notable for chronic constipation. [facility] Past Medical History Medical History (Updated 08/06/24 @ 16:38 by Marco A Trejo MD) Iron deficiency anemia Hypertension Migraine headache Surgical History Surgical History (Updated 08/05/24 @ 21:34 by Mary Carmen Cody PA-C) History of section Social History Social History (Updated 08/05/24 @ 21:34 by Mary Carmen Cody PA-C) Social History: Surrogate medical decision maker: Soraida Baron, daughter. Code status: DO NOT RESUSCITATE. Smoking status: Never smoker Alcohol intake: never Substance use: never Do You Feel Safe in your Home?: Yes Lack of Transportation: No Lack of Food: Never True Current Housing: I Have Housing Concerned About Future Housing: No Difficulty Paying Gas/Electric Bills: No Difficulty Paying for Meds: No Currently Unemployed: No Education: Decline to Answer Difficulty w/ Childcare or Family Care: No Living arrangements: alone Additional living arrangements comments: Lives alone in [place]. 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 Spiritual care concerns: No Meds Home Medications and Allergies Home Medications ?Medication ?Instructions ?Recorded ?Confirmed ?Type No Home Medications 08/05/24 08/05/24 History Allergies Allergy/AdvReac Type Severity Reaction Status Date / Time No Known Allergies Allergy Verified 08/05/24 17:48 Vital Signs Vital Signs - 24 hr 08/05/24 20:15 08/06/24 05:11 08/06/24 08:50 Temperature 97.5 F L 97.6 F 97.7 F Pulse Rate 83 65 87 Respiratory Rate 16 18 18 Blood Pressure 91/53 L 95/55 L 100/57 L Pulse Oximetry 97 93 100 Oxygen Delivery 08/06/24 09:00 08/06/24 09:10 08/06/24 10:10 Temperature 97.4 F L 97.3 F L Pulse Rate 84 100 Respiratory Rate 18 18 Blood Pressure 98/56 L 132/70 Pulse Oximetry 99 100 Oxygen Delivery Room Air 08/06/24 11:10 08/06/24 11:47 08/06/24 11:48 Temperature 97.3 F L 97.5 F L 97.5 F L Pulse Rate 68 92 92 Respiratory Rate 18 18 18 Blood Pressure 117/63 115/55 L 115/55 L Pulse Oximetry 99 97 97 Oxygen Delivery 08/06/24 11:53 08/06/24 12:08 08/06/24 13:08 Temperature 97.5 F L 96.9 F L 97 F L Pulse Rate 92 94 92 Respiratory Rate 18 16 18 Blood Pressure 115/55 L 117/65 127/64 Pulse Oximetry 97 100 98 Oxygen Delivery 08/06/24 14:00 08/06/24 14:08 08/06/24 15:08 Temperature 97.5 F L 97.5 F L 97.8 F Pulse Rate 91 91 92 Respiratory Rate 18 18 18 Blood Pressure 99/41 L 99/47 L 110/68 Pulse Oximetry 98 98 99 Oxygen Delivery 08/06/24 15:35 08/06/24 15:54 Temperature 97 F L 97 F L Pulse Rate 90 80 Respiratory Rate 18 18 Blood Pressure 123/49 L 111/53 L Pulse Oximetry 100 99 Oxygen Delivery Exam Narrative: Alert, oriented x3, cooperative, appears chronically ill, cachectic. Abdomen: Soft, nontender, no hepatosplenomegaly, no masses no tenderness. Rectal exam within normal limits. Results Labs 08/06/24 05:54 08/06/24 05:54 Labs: Short CBC 08/06/24 Range/Units 05:54 WBC 11.2 H (4.5-10.0) K/mm3 Hgb 5.4 L* D (12.0-15.0) g/dL Hct 19.2 L* (37.0-47.0) % Plt Count 290 (150-375) k/mm3 [facility] 08/06/24 05:54 Sodium 132 L Potassium 3.1 L Chloride 102 Carbon Dioxide 22 BUN 22 H D Creatinine 0.45 L Glucose 124 H Calcium 8.3 L
--- NOTE | 2024-08-06 17:40 | WPDONCCN ---
Assessment and Plan Assessment and plan (1) Mediastinal mass: Code(s): J98.59 - Other diseases of mediastinum, not elsewhere classified Status: Acute Plan This is a pleasant 68-year-old female with history of hypertension and anemia without any previous history of malignancy came into the hospital with lightheadedness dizziness with generalized weakness poor appetite and 30 lb weight loss. Labs showed profound anemia with hemoglobin of 5.4. She denies any melena and hematochezia. CT chest abdomen pelvis showed 6.4 x 4.6 x 9.3 cm mediastinal mass with extensive mediastinal lymphadenopathy extending into the subcarinal station. Lungs are clear. No lytic and blastic bone lesions. Liver was normal. Pancreas was normal. Spleen not enlarged. There was scattered non-pathologically enlarged lymph node in the mesentery and deep in the pelvis. There was significant lymphadenopathy in the right supraclavicular lymph node station. These findings are worrisome for lymphoma versus metastatic disease. I will order ultrasound-guided biopsy of the right supraclavicular lymph node. GI service was consulted due to history of anemia and constipation and plan for EGD and colonoscopy noted. Patient is currently receiving blood transfusion. Will start her on iron infusion as well. She was provided with my office information for follow-up. HPI Data of Consult Date/Time: 08/06/24 17:40 Requesting Physician: Sonia Plascencia MD Primary Care Provider: Hector Andrade Consult Narrative Narrative: Lakshmi Cardoza is a 68 year old female history of hypertension, iron deficiency anemia and migraine came into the ER with generalized weakness poor appetite and 30 lb weight loss since fall of 2023. She denies any previous history of malignancy. Denies any history of smoking. Denies any new lumps bumps and lymphadenopathy. Denies any night sweats fevers and chills. CT scan chest abdomen pelvis was performed that showed large mid mediastinal mass with bulky calcification in the left lower lobe of the thyroid and significant lymphadenopathy in the right hilum and the neck. There was finding of fecal impaction. Labs showed hemoglobin of 5.4 with slightly elevated WBC of 11.2. Iron was 30 with iron saturation of 13%. She denies any melena hematochezia. Denies any other complaints. Review of Systems Review of Systems: Review of system as per HPI otherwise negative [facility] Past Medical History Medical History (Updated 08/06/24 @ 16:38 by Marco A Trejo MD) Iron deficiency anemia Hypertension Migraine headache Surgical History Surgical History (Updated 08/05/24 @ 21:34 by Mary Carmen Cody PA-C) History of section Social History Social History (Updated 08/05/24 @ 21:34 by Mary Carmen Cody PA-C) Social History: Surrogate medical decision maker: Soraida Baron, daughter. Code status: DO NOT RESUSCITATE. Smoking status: Never smoker Alcohol intake: never Substance use: never Do You Feel Safe in your Home?: Yes Lack of Transportation: No Lack of Food: Never True Current Housing: I Have Housing Concerned About Future Housing: No Difficulty Paying Gas/Electric Bills: No Difficulty Paying for Meds: No Currently Unemployed: No Education: Decline to Answer Difficulty w/ Childcare or Family Care: No Living arrangements: alone Additional living arrangements comments: Lives alone in [place]. 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 Spiritual care concerns: No Meds Home Medications and Allergies Home Medications ?Medication ?Instructions ?Recorded ?Confirmed ?Type No Home Medications 08/05/24 08/05/24 History Allergies Allergy/AdvReac Type Severity Reaction Status Date / Time No Known Allergies Allergy Verified 08/05/24 17:48 Vital Signs Vital Signs - 24 hr 08/05/24 20:15 08/06/24 05:11 08/06/24 08:50 Temperature 36.4 C L 36.4 C 36.5 C Pulse Rate 83 65 87 Respiratory Rate 16 18 18 Blood Pressure 91/53 L 95/55 L 100/57 L Pulse Oximetry 97 93 100 Oxygen Delivery 08/06/24 09:00 08/06/24 09:10 08/06/24 10:10 Temperature 36.3 C L 36.3 C L Pulse Rate 84 100 Respiratory Rate 18 18 Blood Pressure 98/56 L 132/70 Pulse Oximetry 99 100 Oxygen Delivery Room Air 08/06/24 11:10 08/06/24 11:47 08/06/24 11:48 Temperature 36.3 C L 36.4 C L 36.4 C L Pulse Rate 68 92 92 Respiratory Rate 18 18 18 Blood Pressure 117/63 115/55 L 115/55 L Pulse Oximetry 99 97 97 Oxygen Delivery 08/06/24 11:53 08/06/24 12:08 08/06/24 13:08 Temperature 36.4 C L 36.1 C L 36.1 C L Pulse Rate 92 94 92 Respiratory Rate 18 16 18 Blood Pressure 115/55 L 117/65 127/64 Pulse Oximetry 97 100 98 Oxygen Delivery 08/06/24 14:00 08/06/24 14:08 08/06/24 15:08 Temperature 36.4 C L 36.4 C L 36.6 C Pulse Rate 91 91 92 Respiratory Rate 18 18 18 Blood Pressure 99/41 L 99/47 L 110/68 Pulse Oximetry 98 98 99 Oxygen Delivery 08/06/24 15:35 08/06/24 15:54 08/06/24 16:54 Temperature 36.1 C L 36.1 C L 36.2 C L Pulse Rate 90 80 69 Respiratory Rate 18 18 16 Blood Pressure 123/49 L 111/53 L 115/65 Pulse Oximetry 100 99 100 Oxygen Delivery Exam Narrative: Lungs are clear to auscultation bilaterally Cardiovascular regular rate rhythm no murmurs Abdomen soft nontender nondistended bowel sounds are positive Extremities no edema No palpable lymphadenopathy Results Labs 08/06/24 05:54 08/06/24 05:54 Labs: Short CBC 08/06/24 Range/Units 05:54 WBC 11.2 H (4.5-10.0) K/mm3 Hgb 5.4 L* D (12.0-15.0) g/dL Hct 19.2 L* (37.0-47.0) % Plt Count 290 (150-375) k/mm3 [facility] 08/06/24 05:54 Sodium 132 L Potassium 3.1 L Chloride 102 Carbon Dioxide 22 BUN 22 H D Creatinine 0.45 L Glucose 124 H Calcium 8.3 L
[2024-08-06] MEDS: IRON SUCROSE COMPLEX 400 MG, IRON SUCROSE COMPLEX 100 MG in SODIUM CHLORIDE 0.9% IV 250 ML 78.57 MG IVPB (18:15)
[2024-08-06] MEDS: polyethylene glycoL 3350 238 GM BOTTLE 119 GM PO (20:38)
[2024-08-07] MEDS: VANCOMYCIN 1,000 MG/NS 250 ML 1,000 MG/250 ML BAG 250 MG IVPB (02:31)
[2024-08-07 05:36] VITALS: BP 127/69; PULSE 81; RESP 16; TEMP 36.3; O2SAT 98
[2024-08-07 06:13] LABS: Estimated CRCL calculation 72 ml/min; Estimated Glomerular Filt Rate > 60
--- NOTE | 2024-08-07 06:47 | P.CDI_ITS ---
CDI Query Clarification Request BMI: 14.2 Nutritional Diagnostic Statement: Please refer to the comprehensive nutrition assessment for further information. If you agree with diagnosis of 1. Severe malnutrition related to chronic poor intake as evidenced by intakes <75% needs > 1 month; weight loss 15%/4 months; severe muscle wasting and fat loss 2. Increased protein energy needs related to wound healing as evidenced by stage 2 pressure injury to sacrum. Please specify severity if known: * Mild * Moderate * Severe * Other/Unknown <Liberty Rivers RN - Last Filed: 08/07/24 06:48> Clarified Diagnosis Clarified Diagnosis: severe <Gerardo Dhaliwal MD - Last Filed: 08/07/24 07:37>
--- NOTE | 2024-08-07 08:37 | P.PNIM_ITS ---
Progress Note: A&P Assessment and Plan (1) Sepsis: Qualifiers: Sepsis acute organ dysfunction status: without acute organ dysfunction Sepsis type: sepsis due to unspecified organism Qualified Code(s): A41.9 - S epsis, unspecified organism Code(s): A41.9 - Sepsis, unspecified organism Status: Acute (2) Urinary tract infection: Code(s): N39.0 - Urinary tract infection, site not specified Status: Acute (3) Mediastinal mass: Code(s): J98.59 - Other diseases of mediastinum, not elsewhere classified Status: Acute (4) Decubitus ulcer of ischium, stage 2: Qualifiers: Laterality: left Qualified Code(s): L89.322 - Pressure ulcer of left buttock, stage 2 Code(s): L89.302 - Pressure ulcer of unspecified buttock, stage 2 Status: Acute (5) Abnormal imaging of thyroid: Code(s): R93.89 - Abnormal findings on diagnostic imaging of other specified body structures Status: Acute (6) Fecal impaction: Code(s): K56.41 - Fecal impaction Status: Acute Plan The patient presented to the emergency department with complaints of weakness and unintentional weight loss Severe sepsis AND UTI She meets sepsis criteria with tachycardia, tachypnea, leukocytosis, and elevated lactic acid level resulting from urinary tract infection. received 30 mL/kg IV fluid bolus in the ED with elevation of her lactic acid level. Hypotension upon arrival to the ED Received fluid resuscitation blood pressure became stable Blood pressures have been running at the lower end of normal but are stable. Blood and urine cultures are pending. received cefepime 2 g and vancomycin 1000 mg in the ED changed to ceftriaxone 1 g Q 24 hours and vancomycin to cover for urinary tract infection and possible infection of the left hip decubitus ulcer. infection of the left hip decubitus ulcer. abx see above consult wound care Large middle mediastinal mass CT scan shows a large medial mediastinal mass ultrasound-guided biopsy of a supraclavicular lymph node per tower air traffic control specialist consult manager user interface oncologist. hematology oncologist considers lymphoma versus metastatic disease, pending biopsy of right supraclavicular lymph node Severe anemia Hemoglobin 5.4 in the morning Blood pressure low Order to pack RBC transfusion stat Follow-up hemoglobin q.6 hours Transfuse p.r.n. Follow-up stool guaiac, iron panel, haptoglobin, reticulocyte, iron panel Consult GI for evaluation treatment plans colonoscopy and EGD on Sunday. Patient has physical deconditioning, severe malnutrition, Patient has difficulty moving her out off bed Consult dietitian for supplement Consult PT OT psychiatric social worker supervisor for evaluation, patient may benefit from mcc placement Hypokalemia, potassium 2.7 Replete with potassium chloride 40 mEq IV once and 40 mg p.o. once Follow-up BMP code status to be DO NOT RESUSCITATE Subjective Date/time seen: 08/07/24 08:37 Interval history: Blood pressure stable, hemoglobin 11.6, white blood cell is trending down to nornal Patient feels tired, denies abdomen pain, nausea vomiting chest pain shortness of breath Exam Narrative: GENERAL: Ill-appearing, moderate malnutrition in no acute distress. Well- nourished. - EYES: EOMI. Anicteric. - HENT: Moist mucous membranes. - LUNGS: Clear to auscultation bilateral ly, no wheezing, rhonchi, or rales. - CARDIOVASCULAR: Regular rate and rhyth m. No murmur. No JVD. - ABDOMEN: Soft, non-tender and non-dist ended. No palpable masses. - EXTREMITIES: No edema. Peripheral puls es 2+. Non-tender. - NEUROLOGIC: No focal neurological defi cits. CN II-XII grossly intact. - PSYCHIATRIC: Awake, Alert and oriented x 3. Appropriate mood and affect. - SKIN: Stage II sacral decubitus ulcer - LYMPH: No cervical lymphadenopathy. Objective Data Vital Signs Vital Signs: Vital Signs - 24 hr 08/06/24 08:50 08/06/24 09:00 08/06/24 09:10 Temperature 97.7 F 97.4 F L Pulse Rate 87 84 Respiratory Rate 18 18 Blood Pressure 100/57 L 98/56 L Pulse Oximetry 100 99 Oxygen Delivery Room Air 08/06/24 10:10 08/06/24 11:10 08/06/24 11:47 Temperature 97.3 F L 97.3 F L 97.5 F L Pulse Rate 100 68 92 Respiratory Rate 18 18 18 Blood Pressure 132/70 117/63 115/55 L Pulse Oximetry 100 99 97 Oxygen Delivery 08/06/24 11:48 08/06/24 11:53 08/06/24 12:08 Temperature 97.5 F L 97.5 F L 96.9 F L Pulse Rate 92 92 94 Respiratory Rate 18 18 16 Blood Pressure 115/55 L 115/55 L 117/65 Pulse Oximetry 97 97 100 Oxygen Delivery 08/06/24 13:08 08/06/24 14:00 08/06/24 14:08 Temperature 97 F L 97.5 F L 97.5 F L Pulse Rate 92 91 91 Respiratory Rate 18 18 18 Blood Pressure 127/64 99/41 L 99/47 L Pulse Oximetry 98 98 98 Oxygen Delivery 08/06/24 15:08 08/06/24 15:35 08/06/24 15:54 Temperature 97.8 F 97 F L 97 F L Pulse Rate 92 90 80 Respiratory Rate 18 18 18 Blood Pressure 110/68 123/49 L 111/53 L Pulse Oximetry 99 100 99 Oxygen Delivery 08/06/24 16:54 08/06/24 17:54 08/06/24 21:04 Temperature 97.2 F L 97.4 F L 97.4 F L Pulse Rate 69 90 92 Respiratory Rate 16 18 16 Blood Pressure 115/65 107/69 111/72 Pulse Oximetry 100 99 100 Oxygen Delivery 08/07/24 05:36 Temperature 97.3 F L Pulse Rate 81 Respiratory Rate 16 Blood Pressure 127/69 Pulse Oximetry 98 Oxygen Delivery Intake/Output Intake/Output: Intake & Output 08/04/24 08/05/24 08/06/24 08/07/24 23:59 23:59 23:59 23:59 Intake Total 2250 2185 1136 Output Total 75 450 350 Balance 2175 3325 786 Meds/Results Medications: Active Medications Generic Name Dose Route Start Last Admin Trade Name Freq PRN Reason Stop Dose Admin Acetaminophen 650 mg 08/05/24 15:39 Acetaminophen 325 Mg Tablet PO Q6H PRN Mild Pain (1-3) or Fever Ceftriaxone Sodium 1 gm in 50 mls @ 100 mls/hr 08/05/24 16:00 08/06/24 16:26 Rocephin 1 Gm/Ns 50 Ml IVPB 100 mls/hr Q24H KANNAN Administration Vancomycin HCl 1,000 mg in 250 mls @ 250 mls/hr 08/06/24 09:00 08/07/24 05:45 Vancomycin 1,000 Mg/Ns 250 Ml IVPB Infused Q18H KANNAN Infusion Polyethylene Glycol 17 gm 08/06/24 09:00 08/06/24 09:00 Polyethylene Glycol 3350 17 Gm Powd.Pack PO Not Given QAM KANNNA Polyethylene Glycol 119 gm 08/06/24 20:00 08/06/24 20:38 Polyethylene Glycol 3350 238 Gm Bottle PO 08/07/24 20:01 119 gm BID@0800,2000 KANNAN Administration Polyethylene Glycol 119 gm 08/08/24 05:00 Polyethylene Glycol 3350 238 Gm Bottle PO 08/08/24 05:01 ONCE ONE Radiology Results: ITS Impressions Chest X-Ray 08/05/24 10:51 IMPRESSION: No focal infiltrate or effusion. Asymmetric enlargement of the superior mediastinum representing either lymphadenopathy versus intrathoracic extension of the thyroid gland for which cross-sectional imaging (noncontrast enhanced CT examination of the chest) may be performed for further evaluation, when the patient is clinically able. Chest/Abdomen/Pelvis CT 08/05/24 12:05 IMPRESSION: Large middle mediastinal mass containing bulky calcifications and demonstrating contrast enhancement. Significant lymphadenopathy is identified within the right supraclavicular lymph node station. Right hilar lymphadenopathy is also noted. Scattered pathologically enlarged and morphologically suspicious lymph nodes within the base of the neck. The left lobe of the thyroid gland is heterogeneous and contains bulky calcifi cations. Findings within the pelvis suggesting fecal impaction, as detailed above. Labs Labs: Laboratory Results - last 24 hr 08/05/24 08/06/24 08/06/24 10:10 05:44 05:54 Absolute Retic 0.08 Percent Retic 3.90 Immature Retic Fraction 22.0 H Retic Hgb Content 29.2 Creatinine Estim Creat Clear Calc Estimated GFR Iron 30 L Cancelled TIBC 225 L Cancelled % Saturation 13 L Cancelled Ferritin 989.00 H Total T3 0.82 L Blood Type Antibody Screen Crossmatch 08/06/24 08/07/24 06:48 05:47 Absolute Retic Percent Retic Immature Retic Fraction Retic Hgb Content Creatinine 0.38 L Estim Creat Clear Calc 72 Estimated GFR > 60 Iron TIBC % Saturation Ferritin Total T3 Blood Type O Positive Antibody Screen Negative Crossmatch See Detail
[2024-08-07 08:50] LABS: Basophils Percent Auto 0.2 % (0.2-1.2); Eosinophils Percent Auto 0.2 % (0-4.4); Hematocrit 37.4 % (37.0-47.0); Hemoglobin 11.6 g/dL (12.0-15.0); Immature Granulocyte Absolute 0.07 K/mm3 (0.00-0.031); Immature Granulocyte Percent A 0.7 % (0-0.5); Lymphocytes Absolute Auto 0.31 K/mm3 (0.9-3.2); Lymphocytes Percent Auto 3.2 % (18.3-44.2); Mean Corpuscular Hemoglobin 27.8 pg (26-34); Mean Corpuscular Volume 89.5 fl (80-100); Mean Platelet Volume 11.7 fl (7.4-10.4); Monocytes Absolute Auto 0.7 K/mm3 (0.1-0.6); Monocytes Percent Auto 7.6 % (2.6-8.5); Neutrophils Absolute Auto 8.6 K/mm3 (1.3-6.7); Neutrophils Percent Auto 88.1 % (45.5-73.1); Platelet Count Result 210 k/mm3 (150-375); Red Blood Count 4.18 M/mm3 (4.2-5.4); Red Cell Distribution Width 17.6 % (11.5-14.5); White Blood Count 9.8 K/mm3 (4.5-10.0)
[2024-08-07 09:10] VITALS: O2SAT 98
[2024-08-07] MEDS: polyethylene glycoL 3350 17 GM POWD.PACK PO (09:11)
[2024-08-07 09:29] LABS: Anisocytosis 1+; Burr Cells 1+; Crenated RBC 1+; Hypochromasia 1+; Platelet Estimate Adequate (Adequate); Schistocytes None Seen
[2024-08-07 09:33] LABS: Anion Gap 11 mmol/L (4-12); Blood Urea Nitrogen 14 mg/dL (7-17); Carbon Dioxide 18 mmol/L (22-30); Chloride 105 mmol/L (98-107); Estimated CRCL calculation 69 ml/min; Estimated Glomerular Filt Rate > 60; Glucose 130 mg/dL (65-110); Potassium 2.7 mmol/L (3.4-5.0); Sodium 134 mmol/L (137-145)
--- NOTE | 2024-08-07 09:58 | PCPTNOTE ---
Spoke with MALIHA Kelley to remove bedrest orders. Nurse Rosie warren.
[2024-08-07] MEDS: POTASSIUM CHLORIDE 20 MEQ ER TABLET 40 MEQ PO (10:52)
[2024-08-07 10:59] LABS: INR 1.2; Prothrombin Time 15.1 Seconds (11.1-14.7)
[2024-08-07 11:00] LABS: Partial Thromboplastin Time 44.6 Seconds (22.3-36.8)
[2024-08-07 11:24] LABS: IFOB Positive Control Positive; Immunochemical Fecal Occult Bl Negative (N)
--- NOTE | 2024-08-07 12:23 | PCNFU ---
Nutrition Follow-Up Complete: 1. Severe malnutrition related to chronic poor intake as evidenced by intakes <75% needs > 1 month; weight loss 15%/4 months; severe muscle wasting and fat loss 2. Increased protein energy needs related to wound healing as evidenced by stage 2 pressure injury to sacrum Goal:Diet orders PO intake to improve to 50% meals Pt slowly progressing towards goal Pt current nutrition is Clear liquids. Nutrition recommendation: encouraged ensure Clear on trays Last recorded weight is 41.1 kg. Bowel Motility: +BM 08/05 Labs Reviewed: Hgb:11.6, Alb:3.1, NA:134, K:2.7, Cr:0.4, Glu:130 Meds Noted: miralax Skin: Stage II sacrum Additional Notes: Pt diet advanced to clear liquids, 75% intake, pt states she tolerated well. Encouraged Ensure Clear on trays, recommend to advance diet as tolerated. Monitoring diet orders, weights, labs, wounds, plan of care. follow up in 3 days
[2024-08-07 14:00] VITALS: BP 107/74; PULSE 102; RESP 15; TEMP 36.6; O2SAT 98
[2024-08-07] MEDS: POTASSIUM CHLORIDE INJ 40 MEQ in SODIUM CHLORIDE 0.9% IV 500 ML 130 MEQ IVPB (14:08)
[2024-08-07] MEDS: CEPHALEXIN 500 MG CAPSULE PO ×2 (14:12→21:09)
--- NOTE | 2024-08-07 17:32 | P.PNGI_ITS ---
Progress Note: A&P Assessment and Plan (1) Iron deficiency anemia: Code(s): D50.9 - Iron deficiency anemia, unspecified Status: Acute Assessment and Plan: As previously discussed, the patient appears chronically ill and cachectic with imaging evidence of possible metastatic disease to the mediastinum. This associated with iron deficiency anemia points towards a primary neoplasm in the gastrointestinal system. She will undergo EGD and colonoscopy tomorrow. Subjective Date/time seen: 08/07/24 17:32 Interval history: Patient is currently undergoing prep for tomorrow's colonoscopy and EGD to investigate iron deficiency anemia. No new Exam Narrative: GENERAL: Ill-appearing, moderate malnutrition in no acute distress. Well- nourished. - EYES: EOMI. Anicteric. - HENT: Moist mucous membranes. - LUNGS: Clear to auscultation bilateral ly, no wheezing, rhonchi, or rales. - CARDIOVASCULAR: Regular rate and rhyth m. No murmur. No JVD. - ABDOMEN: Soft, non-tender and non-dist ended. No palpable masses. - EXTREMITIES: No edema. Peripheral puls es 2+. Non-tender. - NEUROLOGIC: No focal neurological defi cits. CN II-XII grossly intact. - PSYCHIATRIC: Awake, Alert and oriented x 3. Appropriate mood and affect. - SKIN: Stage II sacral decubitus ulcer - LYMPH: No cervical lymphadenopathy. Objective Data Vital Signs Vital Signs: Vital Signs - 24 hr 08/06/24 17:54 08/06/24 21:04 08/07/24 05:36 Temperature 97.4 F L 97.4 F L 97.3 F L Pulse Rate 90 92 81 Respiratory Rate 18 16 16 Blood Pressure 107/69 111/72 127/69 Pulse Oximetry 99 100 98 Oxygen Delivery 08/07/24 09:10 08/07/24 10:01 08/07/24 14:00 Temperature 97.8 F Pulse Rate 102 H Respiratory Rate 15 Blood Pressure 107/74 Pulse Oximetry 98 98 Oxygen Delivery Room Air Room Air Intake/Output Intake/Output: Intake & Output 08/04/24 08/05/24 08/06/24 08/07/24 23:59 23:59 23:59 23:59 Intake Total 2250 2185 1653 Output Total 75 450 350 Balance 2175 1735 1303 Meds/Results Medications: Active Medications Generic Name Dose Route Start Last Admin Trade Name Freq PRN Reason Stop Dose Admin Acetaminophen 650 mg 08/05/24 15:39 Acetaminophen 325 Mg Tablet PO Q6H PRN Mild Pain (1-3) or Fever Cephalexin HCl 500 mg 08/07/24 12:35 08/07/24 14:12 Cephalexin 500 Mg Capsule PO 08/11/24 21:01 500 mg Q12HR KANNAN Administration Polyethylene Glycol 17 gm 08/06/24 09:00 08/07/24 09:11 Polyethylene Glycol 3350 17 Gm Powd.Pack PO 17 gm QAM KANNAN Administration Polyethylene Glycol 119 gm 08/06/24 20:00 08/07/24 09:12 Polyethylene Glycol 3350 238 Gm Bottle PO 08/07/24 20:01 Not Given BID@0800,2000 KANNAN Polyethylene Glycol 119 gm 08/08/24 05:00 Polyethylene Glycol 3350 238 Gm Bottle PO 08/08/24 05:01 ONCE ONE Radiology Results: ITS Impressions Chest X-Ray 08/05/24 10:51 IMPRESSION: No focal infiltrate or effusion. Asymmetric enlargement of the superior mediastinum representing either lymphadenopathy versus intrathoracic extension of the thyroid gland for which cross-sectional imaging (noncontrast enhanced CT examination of the chest) may be performed for further evaluation, when the patient is clinically able. Chest/Abdomen/Pelvis CT 08/05/24 12:05 IMPRESSION: Large middle mediastinal mass containing bulky calcifications and demonstrating contrast enhancement. Significant lymphadenopathy is identified within the right supraclavicular lymph node station. Right hilar lymphadenopathy is also noted. Scattered pathologically enlarged and morphologically suspicious lymph nodes within the base of the neck. The left lobe of the thyroid gland is heterogeneous and contains bulky calcifications. Findings within the pelvis suggesting fecal impaction, as detailed above. Lymph Node Biopsy Ultrasound 08/07/24 13:09 IMPRESSION: 1. Successful Ultrasound-guided biopsy of 4.2 x 2.2 x 2.6 cm right supraclavicular lymph node. Labs Labs: Laboratory Results - last 24 hr 08/06/24 08/07/24 08/07/24 06:48 05:47 05:47 WBC 9.8 RBC 4.18 L Hgb 11.6 L D Hct 37.4 MCV 89.5 MCH 27.8 D MCHC 31.0 L RDW 17.6 H Plt Count 210 MPV 11.7 H Immature Gran % (Auto) 0.7 H Neut % (Auto) 88.1 H Lymph % (Auto) 3.2 L [place] % (Auto) 7.6 Eos % (Auto) 0.2 Baso % (Auto) 0.2 Lymph # (Auto) 0.31 L [place] # (Auto) 0.7 H Eos # (Auto) 0.0 Baso # (Auto) 0.0 Abs Immat Gran (auto) 0.07 H Absolute Neuts (auto) 8.6 H Absolute Nucleated RBC 0.000 Band Neutrophils % Not Reportable Nucleated RBC % 0.0 Platelet Estimate Adequate Hypochromasia 1+ Anisocytosis 1+ Sosa Cells 1+ Crenated Cell 1+ Schistocytes None seen PT INR APTT Sodium 134 L Potassium 2.7 L* Chloride 105 Carbon Dioxide 18 L Anion Gap 11 BUN 14 D Creatinine 0.38 L 0.40 L Estim Creat Clear Calc 72 Estimated GFR Glucose Calcium Stl Occult Blood (IFOB) Crossmatch See Detail 08/07/24 08/07/24 08/07/24 05:47 05:47 10:30 WBC RBC Hgb Hct MCV MCH MCHC RDW Plt Count MPV Immature Gran % (Auto) Neut % (Auto) Lymph % (Auto) [place] % (Auto) Eos % (Auto) Baso % (Auto) Lymph # (Auto) [place] # (Auto) Eos # (Auto) Baso # (Auto) Abs Immat Gran (auto) Absolute Neuts (auto) Absolute Nucleated RBC Band Neutrophils % Nucleated RBC % Platelet Estimate Hypochromasia Anisocytosis So[place] Cells Crenated Cell Schistocytes PT 15.1 H D INR 1.2 APTT 44.6 H Sodium Potassium Chloride Carbon Dioxide Anion Gap BUN Creatinine Estim Creat Clear Calc 69 Estimated GFR > 60 > 60 Glucose 130 H Calcium 8.0 L Stl Occult Blood (IFOB) Crossmatch 08/07/24 10:38 WBC RBC Hgb Hct MCV MCH MCHC RDW Plt Count MPV Immature Gran % (Auto) Neut % (Auto) Lymph % (Auto) [place] % (Auto) Eos % (Auto) Baso % (Auto) Lymph # (Auto) [place] # (Auto) Eos # (Auto) Baso # (Auto) Abs Immat Gran (auto) Absolute Neuts (auto) Absolute Nucleated RBC Band Neutrophils % Nucleated RBC % Platelet Estimate Hypochromasia Anisocytosis Sosa Cells Crenated Cell Schistocytes PT INR APTT Sodium Potassium Chloride Carbon Dioxide Anion Gap BUN Creatinine Estim Creat Clear Calc Estimated GFR Glucose Calcium Stl Occult Blood (IFOB) Negative Crossmatch
[2024-08-07 21:08] VITALS: BP 99/65; PULSE 95; RESP 16; TEMP 37.3; O2SAT 98
[2024-08-07] MEDS: polyethylene glycoL 3350 238 GM BOTTLE 119 GM PO (21:18)
[2024-08-07 21:58] LABS: Haptoglobin 325 mg/dL (43-212)
[2024-08-08] VITALS (9 sets, daily range): BP systolic 80–119; BP diastolic 50–72; PULSE 80–92; RESP 18–22; TEMP 36.2–36.7; O2SAT 97–99
[2024-08-08] MEDS: polyethylene glycoL 3350 238 GM BOTTLE 119 GM PO (05:21)
[2024-08-08 06:36] LABS: Basophils Percent Auto 0.2 % (0.2-1.2); Eosinophils Percent Auto 0.3 % (0-4.4); Hematocrit 41.5 % (37.0-47.0); Hemoglobin 12.9 g/dL (12.0-15.0); Immature Granulocyte Absolute 0.07 K/mm3 (0.00-0.031); Immature Granulocyte Percent A 0.7 % (0-0.5); Lymphocytes Percent Auto 2.9 % (18.3-44.2); Mean Corpuscular HGB Conc 31.1 g/dl (32-36); Mean Corpuscular Hemoglobin 27.5 pg (26-34); Mean Corpuscular Volume 88.5 fl (80-100); Mean Platelet Volume 10.3 fl (7.4-10.4); Monocytes Absolute Auto 0.6 K/mm3 (0.1-0.6); Neutrophils Absolute Auto 9.4 K/mm3 (1.3-6.7); Neutrophils Percent Auto 89.9 % (45.5-73.1); Platelet Count Result 187 k/mm3 (150-375); Red Blood Count 4.69 M/mm3 (4.2-5.4); Red Cell Distribution Width 18.2 % (11.5-14.5); White Blood Count 10.4 K/mm3 (4.5-10.0)
[2024-08-08 06:51] LABS: Anion Gap 6 mmol/L (4-12); Blood Urea Nitrogen 8 mg/dL (7-17); Calcium 8.5 mg/dL (8.4-10.2); Carbon Dioxide 26 mmol/L (22-30); Chloride 101 mmol/L (98-107); Estimated CRCL calculation 71 ml/min; Estimated Glomerular Filt Rate > 60; Glucose 98 mg/dL (65-110); Potassium 3.5 mmol/L (3.4-5.0); Sodium 133 mmol/L (137-145)
--- NOTE | 2024-08-08 13:36 | WPDANESEPPF ---
Anes - Initial Pre Proc Eval Procedure: Operation Date: 08/08/24 15:30 Proposed Procedures p Esophagogastroduodenoscopy & Colonoscopy - Marco A Trejo MD Date/Time: 08/08/24 13:36 Surgeon: Sonia Plascencia MD Pre Op Diagnosis: sepsis,uti Patient Data Age: 68 Gender: F Height: 1.7 m Weight: 39.7 kg Last Vital Signs Temp 36.7 C 08/08/24 05:41 Pulse 92 08/08/24 05:41 Resp 18 08/08/24 05:41 BP 115/72 08/08/24 05:41 Pulse Ox 98 08/08/24 05:41 O2 Del Method Room Air 08/07/24 20:00 Allergies Allergy/AdvReac Type Severity Reaction Status Date / Time No Known Allergies Allergy Verified 08/08/24 13:33 Home Medications ?Medication ?Instructions ?Recorded ?Confirmed ?Type No Home Medications 08/05/24 08/05/24 History Laboratory Tests 08/05/24 08/08/24 10:10 06:29 WBC 10.4 H K/mm3 (4.5-10.0) RBC 4.69 M/mm3 (4.2-5.4) Hgb 12.9 g/dL (12.0-15.0) Hct 41.5 % (37.0-47.0) MCV 88.5 fl (80-100) MCH 27.5 pg (26-34) MCHC 31.1 L g/dl (32-36) RDW 18.2 H % (11.5-14.5) Plt Count 187 k/mm3 (150-375) MPV 10.3 fl (7.4-10.4) Immature Gran % (Auto) 0.7 H % (0-0.5) Neut % (Auto) 89.9 H % (45.5-73.1) Lymph % (Auto) 2.9 L % (18.3-44.2) [place] % (Auto) 6.0 % (2.6-8.5) Eos % (Auto) 0.3 % (0-4.4) Baso % (Auto) 0.2 % (0.2-1.2) Lymph # (Auto) 0.30 L K/mm3 (0.9-3.2) [place] # (Auto) 0.6 K/mm3 (0.1-0.6) Eos # (Auto) 0.0 K/mm3 (0-0.3) Baso # (Auto) 0.0 K/mm3 (0.0-0.1) Abs Immat Gran (auto) 0.07 H K/mm3 (0.00-0.031) Absolute Neuts (auto) 9.4 H K/mm3 (1.3-6.7) Absolute Nucleated RBC 0.000 K/mm3 (0.0-0.012) Nucleated RBC % 0.0 % (0.0-0.2) Haptoglobin 325 H mg/dL (43-212) Sodium 133 L mmol/L (137-145) Potassium 3.5 mmol/L (3.4-5.0) Chloride 101 mmol/L (98-107) Carbon Dioxide 26 mmol/L (22-30) Anion Gap 6 mmol/L (4-12) BUN 8 D mg/dL (7-17) Creatinine 0.37 L mg/dL (0.7-1.0) Estim Creat Clear Calc 71 ml/min Estimated GFR > 60 (59 - ) Glucose 98 mg/dL (65-110) Calcium 8.5 mg/dL (8.4-10.2) Patient hx anesthesia problems: none Family hx anesthesia problems: none Results Review: All pre-operative results and documents have been reviewed as part of the pre-operative evaluation. [facility] Past Medical History Medical History Iron deficiency anemia Hypertension Migraine headache Surgical History Surgical History History of section Social History Social History Social History: Surrogate medical decision maker: Soraida Baron, daughter. Code status: DO NOT RESUSCITATE. Smoking status: Never smoker Alcohol intake: never Substance use: never Do You Feel Safe in your Home?: Yes Lack of Transportation: No Lack of Food: Never True Current Housing: I Have Housing Concerned About Future Housing: No Difficulty Paying Gas/Electric Bills: No Difficulty Paying for Meds: No Currently Unemployed: No Education: Decline to Answer Difficulty w/ Childcare or Family Care: No Living arrangements: alone Additional living arrangements comments: Lives alone in [place]. 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 Spiritual care concerns: No Anes - Eval Final PreProcedure Day of Procedure 08/08/24 13:36 Patient weight: cachectic Heart: regular rate and rhythm Lungs: clear to auscultation Airway: Mallampati scale class II Neurological: alert and oriented Last oral intake: >/= 8 hours ASA classification: III Emergent: no Anesthetic plan: proceed Anesthesia type and monitoring: general GIVS and standard monitoring Results Review: All pre-operative results and documents have been reviewed as part of the pre-operative evaluation. Informed Consent: The patient's anesthetic plan and its attendant risks and benefits were discussed with the patient/family/POA. Questions were solicited and answers provided to the satisfaction of the patient/family/POA.
[2024-08-08] MEDS: LACTATED RINGERS 1,000 ML 150 ML IV CONT (13:46)
--- NOTE | 2024-08-08 14:44 | SUR.OPER ---
EGD START 1428, END 1430 COLONOSCOPY START 1436, END 1440
--- NOTE | 2024-08-08 14:50 | P.PNIM_ITS ---
Progress Note: A&P Assessment and Plan (1) Sepsis: Qualifiers: Sepsis acute organ dysfunction status: without acute organ dysfunction Sepsis type: sepsis due to unspecified organism Qualified Code(s): A41.9 - S epsis, unspecified organism Code(s): A41.9 - Sepsis, unspecified organism Status: Acute (2) Urinary tract infection: Code(s): N39.0 - Urinary tract infection, site not specified Status: Acute (3) Mediastinal mass: Code(s): J98.59 - Other diseases of mediastinum, not elsewhere classified Status: Acute (4) Decubitus ulcer of ischium, stage 2: Qualifiers: Laterality: left Qualified Code(s): L89.322 - Pressure ulcer of left buttock, stage 2 Code(s): L89.302 - Pressure ulcer of unspecified buttock, stage 2 Status: Acute (5) Abnormal imaging of thyroid: Code(s): R93.89 - Abnormal findings on diagnostic imaging of other specified body structures Status: Acute (6) Fecal impaction: Code(s): K56.41 - Fecal impaction Status: Acute Plan The patient presented to the emergency department with complaints of weakness and unintentional weight loss # Severe sepsis AND UTI She meets sepsis criteria with tachycardia, tachypnea, leukocytosis, and elevated lactic acid level resulting from urinary tract infection. received 30 mL/kg IV fluid bolus in the ED with elevation of her lactic acid level. Hypotension upon arrival to the ED Received fluid resuscitation blood pressure became stable Blood pressures have been running at the lower end of normal but are stable. Blood and urine cultures are pending. received cefepime 2 g and vancomycin 1000 mg in the ED changed to ceftriaxone 1 g Q 24 hours and vancomycin to cover for urinary tract infection and possible infection of the left hip decubitus ulcer. # infection of the left hip decubitus ulcer. abx see above consult wound care # Large middle mediastinal mass CT scan shows a large medial mediastinal mass ultrasound-guided biopsy of a supraclavicular lymph node per junior art director consult inspector heating and refrigeration oncologist. hematology oncologist considers lymphoma versus metastatic disease, pending biopsy of right supraclavicular lymph node # Severe anemia Hemoglobin 5.4 on 08/06/2024 Blood pressure low Status post PRBC transfusion Which in is stable since then Transfuse p.r.n. Follow-up stool guaiac, iron panel, haptoglobin, reticulocyte, iron panel Consult GI for evaluation treatment FOBT came back negative Iron studies with anemia of chronic disease # Patient has physical deconditioning, severe malnutrition, Patient has difficulty moving her out off bed Consult dietitian for supplement Consult PT OT social work case manager for evaluation, patient may benefit from senior living placement # Hypokalemia, potassium 2.7 Replete with potassium chloride 40 mEq IV once and 40 mg p.o. once Follow-up BMP # code status to be DO NOT RESUSCITATE Subjective Date/time seen: 08/08/24 14:50 Interval history: Plan for colonoscopy today. No other complaint. Lost significant weight over past few months. Review of Systems Review of Systems: All systems reviewed & are unremarkable except as noted in HPI and below Exam Narrative: GENERAL: Ill-appearing, cachectic in no acute distress. Well-nourished. - EYES: EOMI. Anicteric. - HENT: Moist mucous membranes. - LUNGS: Clear to auscultation bilateral ly, no wheezing, rhonchi, or rales. - CARDIOVASCULAR: Regular rate and rhyth m. No murmur. No JVD. - ABDOMEN: Soft, non-tender and non-dist ended. No palpable masses. - EXTREMITIES: No edema. Peripheral puls es 2+. Non-tender. - NEUROLOGIC: No focal neurological defi cits. CN II-XII grossly intact. - PSYCHIATRIC: Awake, Alert and oriented x 3. Appropriate mood and affect. - SKIN: Stage II sacral decubitus ulcer - LYMPH: No cervical lymphadenopathy. Objective Data Vital Signs Vital Signs: Vital Signs - 24 hr 08/07/24 20:00 08/07/24 21:08 08/08/24 05:41 Temperature 99.1 F 98.0 F Pulse Rate 95 92 Respiratory Rate 16 18 Blood Pressure 99/65 L 115/72 Pulse Oximetry 98 98 Oxygen Delivery Room Air 08/08/24 08:00 08/08/24 13:44 08/08/24 14:43 Temperature 97.8 F Pulse Rate 88 84 Respiratory Rate 18 20 Blood Pressure 113/65 81/52 L Pulse Oximetry 97 99 Oxygen Delivery Room Air Room Air Room Air Intake/Output Intake/Output: Intake & Output 08/05/24 08/06/24 08/07/24 08/08/24 23:59 23:59 23:59 23:59 Intake Total 2250 2185 2131 400 Output Total 75 450 350 Balance 2175 1735 1781 400 Meds/Results Medications: Active Medications Generic Name Dose Route Start Last Admin Trade Name Paulino PRN Reason Stop Dose Admin Acetaminophen 650 mg 08/05/24 15:39 Acetaminophen 325 Mg Tablet PO Q6H PRN Mild Pain (1-3) or Fever Cephalexin HCl 500 mg 08/07/24 12:35 08/07/24 21:09 Cephalexin 500 Mg Capsule PO 08/11/24 21:01 500 mg Q12HR KANNAN Administration Lactated Ringer's 1,000 mls @ 150 mls/hr 08/08/24 13:45 08/08/24 14:45 Lr - Lactated Ringers Iv IV CONT 150 mls/hr .Q6H40M KANNAN Infusion Polyethylene Glycol 17 gm 08/06/24 09:00 08/07/24 09:11 Polyethylene Glycol 3350 17 Gm Powd.Pack PO 17 gm QAM KANNAN Administration Polyethylene Glycol 119 gm 08/10/24 20:00 Polyethylene Glycol 3350 238 Gm Bottle PO 08/11/24 05:01 BID@0500,2000 [facility] Radiology Results: ITS Impressions Chest X-Ray 08/05/24 10:51 IMPRESSION: No focal infiltrate or effusion. Asymmetric enlargement of the superior mediastinum representing either lymphadenopathy versus intrathoracic extension of the thyroid gland for which cross-sectional imaging (noncontrast enhanced CT examination of the chest) may be performed for further evaluation, when the patient is clinically able. Chest/Abdomen/Pelvis CT 08/05/24 12:05 IMPRESSION: Large middle mediastinal mass containing bulky calcifications and demonstrating contrast enhancement. Significant lymphadenopathy is identified within the right supraclavicular lymph node station. Right hilar lymphadenopathy is also noted. Scattered pathologically enlarged and morphologically suspicious lymph nodes within the base of the neck. The left lobe of the thyroid gland is heterogeneous and contains bulky calcifications. Findings within the pelvis suggesting fecal impaction, as detailed above. Lymph Node Biopsy Ultrasound 08/07/24 13:09 IMPRESSION: 1. Successful Ultrasound-guided biopsy of 4.2 x 2.2 x 2.6 cm right supraclavicular lymph node. Labs Labs: Laboratory Results - last 24 hr 08/05/24 08/08/24 10:10 06:29 WBC 10.4 H RBC 4.69 Hgb 12.9 Hct 41.5 MCV 88.5 MCH 27.5 MCHC 31.1 L RDW 18.2 H Plt Count 187 MPV 10.3 Immature Gran % (Auto) 0.7 H Neut % (Auto) 89.9 H Lymph % (Auto) 2.9 L [place] % (Auto) 6.0 Eos % (Auto) 0.3 Baso % (Auto) 0.2 Lymph # (Auto) 0.30 L [place] # (Auto) 0.6 Eos # (Auto) 0.0 Baso # (Auto) 0.0 Abs Immat Gran (auto) 0.07 H Absolute Neuts (auto) 9.4 H Absolute Nucleated RBC 0.000 Nucleated RBC % 0.0 Haptoglobin 325 H Sodium 133 L Potassium 3.5 Chloride 101 Carbon Dioxide 26 Anion Gap 6 BUN 8 D Creatinine 0.37 L Estim Creat Clear Calc 71 Estimated GFR > 60 Glucose 98 Calcium 8.5
--- NOTE | 2024-08-08 14:52 | P.PNGI_ITS ---
Progress Note: A&P Assessment and Plan (1) Fecal impaction: Code(s): K56.41 - Fecal impaction Status: Acute Assessment and Plan: See EGD report. No significant findings to explain anemia and metastatic disease. However, colonoscopy would not be performed due to high impaction. Orders written to administered tap water enemas every 12 hours for 3 days, and will attempt again a 2 day prep, starting Sunday and Sunday, for colonoscopy next Sunday. Subjective Date/time seen: 08/08/24 14:52 Objective Data Vital Signs Vital Signs: Vital Signs - 24 hr 08/07/24 20:00 08/07/24 21:08 08/08/24 05:41 Temperature 99.1 F 98.0 F Pulse Rate 95 92 Respiratory Rate 16 18 Blood Pressure 99/65 L 115/72 Pulse Oximetry 98 98 Oxygen Delivery Room Air 08/08/24 08:00 08/08/24 13:44 08/08/24 14:43 Temperature 97.8 F Pulse Rate 88 84 Respiratory Rate 18 20 Blood Pressure 113/65 81/52 L Pulse Oximetry 97 99 Oxygen Delivery Room Air Room Air Room Air 08/08/24 14:51 Temperature Pulse Rate 86 Respiratory Rate 18 Blood Pressure Pulse Oximetry 99 Oxygen Delivery Room Air Intake/Output Intake/Output: Intake & Output 08/05/24 08/06/24 08/07/24 08/08/24 23:59 23:59 23:59 23:59 Intake Total 2250 2185 2131 400 Output Total 75 450 350 Balance 2175 1735 1781 400 Meds/Results Medications: Active Medications Generic Name Dose Route Start Last Admin Trade Name Freq PRN Reason Stop Dose Admin Acetaminophen 650 mg 08/05/24 15:39 Acetaminophen 325 Mg Tablet PO Q6H PRN Mild Pain (1-3) or Fever Cephalexin HCl 500 mg 08/07/24 12:35 08/07/24 21:09 Cephalexin 500 Mg Capsule PO 08/11/24 21:01 500 mg Q12HR KANNAN Administration Lactated Ringer's 1,000 mls @ 150 mls/hr 08/08/24 13:45 08/08/24 14:45 Lr - Lactated Ringers Iv IV CONT 150 mls/hr .Q6H40M [facility] Infusion Polyethylene Glycol 17 gm 08/06/24 09:00 08/07/24 09:11 Polyethylene Glycol 3350 17 Gm Powd.Pack PO 17 gm QAM KANNAN Administration Polyethylene Glycol 119 gm 08/10/24 20:00 Polyethylene Glycol 3350 238 Gm Bottle PO 08/11/24 05:01 BID@0500,1999 [facility] Polyethylene Glycol 119 gm 08/11/24 20:00 Polyethylene Glycol 3350 238 Gm Bottle PO 08/12/24 05:01 BID@0500,1999 [facility] Radiology Results: ITS Impressions Chest X-Ray 08/05/24 10:51 IMPRESSION: No focal infiltrate or effusion. Asymmetric enlargement of the superior mediastinum representing either lymphadenopathy versus intrathoracic extension of the thyroid gland for which cross-sectional imaging (noncontrast enhanced CT examination of the chest) may be performed for further evaluation, when the patient is clinically able. Chest/Abdomen/Pelvis CT 08/05/24 12:05 IMPRESSION: Large middle mediastinal mass containing bulky calcifications and demonstrating contrast enhancement. Significant lymphadenopathy is identified within the right supraclavicular lymph node station. Right hilar lymphadenopathy is also noted. Scattered pathologically enlarged and morphologically suspicious lymph nodes within the base of the neck. The left lobe of the thyroid gland is heterogeneous and contains bulky calcifications. Findings within the pelvis suggesting fecal impaction, as detailed above. Lymph Node Biopsy Ultrasound 08/07/24 13:09 IMPRESSION: 1. Successful Ultrasound-guided biopsy of 4.2 x 2.2 x 2.6 cm right supraclavicular lymph node. Labs Labs: Laboratory Results - last 24 hr 08/05/24 08/08/24 10:10 06:29 WBC 10.4 H RBC 4.69 Hgb 12.9 Hct 41.5 MCV 88.5 MCH 27.5 MCHC 31.1 L RDW 18.2 H Plt Count 187 MPV 10.3 Immature Gran % (Auto) 0.7 H Neut % (Auto) 89.9 H Lymph % (Auto) 2.9 L [place] % (Auto) 6.0 Eos % (Auto) 0.3 Baso % (Auto) 0.2 Lymph # (Auto) 0.30 L [place] # (Auto) 0.6 Eos # (Auto) 0.0 Baso # (Auto) 0.0 Abs Immat Gran (auto) 0.07 H Absolute Neuts (auto) 9.4 H Absolute Nucleated RBC 0.000 Nucleated RBC % 0.0 Haptoglobin 325 H Sodium 133 L Potassium 3.5 Chloride 101 Carbon Dioxide 26 Anion Gap 6 BUN 8 D Creatinine 0.37 L Estim Creat Clear Calc 71 Estimated GFR > 60 Glucose 98 Calcium 8.5
[2024-08-08] MEDS: CEPHALEXIN 500 MG CAPSULE PO ×2 (16:23→22:00)
--- NOTE | 2024-08-09 05:50 | PC.NURSE ---
1000 ml tap water enema given. Pt. tolerated fairly with immediate return of stool colored liquid.
[2024-08-09 06:00] VITALS: BP 119/58; PULSE 72; RESP 18; TEMP 36.4; O2SAT 99
[2024-08-09 06:18] LABS: Basophils Percent Auto 0.2 % (0.2-1.2); Eosinophils Percent Auto 0.5 % (0-4.4); Hematocrit 39.7 % (37.0-47.0); Hemoglobin 12.5 g/dL (12.0-15.0); Immature Granulocyte Absolute 0.07 K/mm3 (0.00-0.031); Immature Granulocyte Percent A 0.9 % (0-0.5); Lymphocytes Absolute Auto 0.32 K/mm3 (0.9-3.2); Mean Corpuscular HGB Conc 31.5 g/dl (32-36); Mean Corpuscular Hemoglobin 27.9 pg (26-34); Mean Corpuscular Volume 88.6 fl (80-100); Mean Platelet Volume 10.6 fl (7.4-10.4); Monocytes Absolute Auto 0.7 K/mm3 (0.1-0.6); Neutrophils Absolute Auto 6.8 K/mm3 (1.3-6.7); Neutrophils Percent Auto 85.4 % (45.5-73.1); Platelet Count Result 188 k/mm3 (150-375); Red Blood Count 4.48 M/mm3 (4.2-5.4); Red Cell Distribution Width 18.4 % (11.5-14.5)
[2024-08-09 06:30] LABS: Alanine Aminotransferase 11 U/L (6-35); Albumin Level 2.4 g/dL (3.5-5.1); Alkaline Phosphatase 133 U/L (38-126); Anion Gap 7 mmol/L (4-12); Aspartate Amino Transferase 16 U/L (14-36); Bilirubin,Total 0.8 mg/dL (0.2-1.3); Blood Urea Nitrogen 6 mg/dL (7-17); Calcium 8.4 mg/dL (8.4-10.2); Carbon Dioxide 26 mmol/L (22-30); Chloride 100 mmol/L (98-107); Estimated CRCL calculation 75 ml/min; Estimated Glomerular Filt Rate > 60; Glucose 97 mg/dL (65-110); Magnesium 1.8 mg/dL (1.6-2.3); Sodium 133 mmol/L (137-145)
[2024-08-09] MEDS: CEPHALEXIN 500 MG CAPSULE PO ×2 (07:54→20:54)
--- NOTE | 2024-08-09 09:56 | PCOTNOTE ---
Attempted to see patient, however patient refused. I can't do anything. They got me on this diet, and I'm down to 87lbs. Encouraged patient to participate in therapy for strength. Pt stated, That ain't gonna work. Encouraged patient once again to participate in ADLs including bathing and grooming prior to getting enema. I gotta eat something first. I'm sorry. I'm just not interested in that.
[2024-08-09] MEDS: POTASSIUM CHLORIDE 20 MEQ ER TABLET 40 MEQ PO (10:07)
--- NOTE | 2024-08-09 13:39 | WPDONCPN ---
Progress Note: A&P Assessment and Plan (1) Mediastinal mass: Code(s): J98.59 - Other diseases of mediastinum, not elsewhere classified Status: Acute Assessment and Plan: Patient with large mediastinal mass on CT chest/abd/pelvis performed 08/05/24. There was Right supraclavicular lymphadenopathy. Patient underwent Right supraclavicular lymph node biopsy on 08/07/24 by IR. We await pathology. suspicion for lymphoma. (2) Iron deficiency anemia: Code(s): D50.9 - Iron deficiency anemia, unspecified Status: Acute Assessment and Plan: Presented with low iron saturations, ferritin was high but could be elevated due to inflammation (?cancer). GI attempted colonoscopy on 08/08/24 which was poor prep with hard stool and procedure was aborted. Plan is to give water enemas in the weekend and sunday and second attempt will be made on sunday08/12/24. EGD showed hiatal hernia. Time Spent With Patient Time: 40 minutes Subjective Date/time seen: 08/09/24 13:39 Interval history: Patient seen at bedside today. States that she does not feel well my bottom is raw . She has no appetite. Underwent right supraclavicular lymph node biopsy on 08/07/24 and pathology pending. Review of Systems Review of Systems States that she feels ill for a while. She has been laying in bed with no energy since 03/2024. Has bed sores per patient. Denies chest pain, dyspnea, cough or hemoptysis. Denies nausea and vomiting. She is getting water enema for impending colonoscopy on 08/12/24. Exam Narrative: Alert and orientedx3, ill appearing female in no acute distress HEENT: PERRL, EOMI CV: RRR, no m/g/r RESP: CTAB ABD: Soft, NT, ND, BS+ EXT: no cyanosis. Objective Data Vital Signs Vital Signs: Vital Signs - 24 hr 08/08/24 13:44 08/08/24 14:43 08/08/24 14:53 Temperature 36.6 C Pulse Rate 88 84 86 Respiratory Rate 18 20 18 Blood Pressure 113/65 81/52 L 80/50 L Pulse Oximetry 97 99 99 Oxygen Delivery Room Air Room Air Room Air 08/08/24 15:03 08/08/24 15:13 08/08/24 15:22 Temperature Pulse Rate 83 85 80 Respiratory Rate 22 H 18 18 Blood Pressure 82/50 L 94/51 L 101/62 Pulse Oximetry 99 99 99 Oxygen Delivery Room Air Room Air Room Air 08/08/24 15:45 08/08/24 20:00 08/08/24 21:47 Temperature 36.2 C L 36.2 C L Pulse Rate 81 86 Respiratory Rate 18 18 Blood Pressure 119/71 105/61 Pulse Oximetry 99 99 Oxygen Delivery Room Air 08/09/24 06:00 08/09/24 08:00 Temperature 36.4 C Pulse Rate 72 Respiratory Rate 18 Blood Pressure 119/58 L Pulse Oximetry 99 Oxygen Delivery Room Air Intake/Output Intake/Output: Intake & Output 08/06/24 08/07/24 08/08/24 08/09/24 23:59 23:59 23:59 23:59 Intake Total 2185 2131 1240 458 Output Total 450 350 Balance 1735 1781 1240 458 Meds/Results Medications: Active Medications Generic Name Dose Route Start Last Admin Trade Name Freq PRN Reason Stop Dose Admin Acetaminophen 650 mg 08/05/24 15:39 Acetaminophen 325 Mg Tablet PO Q6H PRN Mild Pain (1-3) or Fever Calcium Carbonate 200 mg 08/09/24 12:32 Calcium Carbonate (Tums) 500 Mg (200 Mg Elemental) PO Q6H PRN Indigestion Cephalexin HCl 500 mg 08/07/24 12:35 08/09/24 07:54 Cephalexin 500 Mg Capsule PO 08/11/24 21:01 500 mg Q12HR [facility] Administration Polyethylene Glycol 119 gm 08/10/24 20:00 Polyethylene Glycol 3350 238 Gm Bottle PO 08/11/24 05:01 BID@0500,1999 [facility] Polyethylene Glycol 119 gm 08/11/24 20:00 Polyethylene Glycol 3350 238 Gm Bottle PO 08/12/24 05:01 BID@0500,1999 [facility] Radiology Results: ITS Impressions Chest X-Ray 08/05/24 10:51 IMPRESSION: No focal infiltrate or effusion. Asymmetric enlargement of the superior mediastinum representing either lymphadenopathy versus intrathoracic extension of the thyroid gland for which cross-sectional imaging (noncontrast enhanced CT examination of the chest) may be performed for further evaluation, when the patient is clinically able. Chest/Abdomen/Pelvis CT 08/05/24 12:05 IMPRESSION: Large middle mediastinal mass containing bulky calcifications and demonstrating contrast enhancement. Significant lymphadenopathy is identified within the right supraclavicular lymph node station. Right hilar lymphadenopathy is also noted. Scattered pathologically enlarged and morphologically suspicious lymph nodes within the base of the neck. The left lobe of the thyroid gland is heterogeneous and contains bulky calcifications. Findings within the pelvis suggesting fecal impaction, as detailed above. Lymph Node Biopsy Ultrasound 08/07/24 13:09 IMPRESSION: 1. Successful Ultrasound-guided biopsy of 4.2 x 2.2 x 2.6 cm right supraclavicular lymph node. Labs Labs: Laboratory Results - last 24 hr 08/09/24 06:10 WBC 8.0 RBC 4.48 Hgb 12.5 Hct 39.7 MCV 88.6 MCH 27.9 MCHC 31.5 L RDW 18.4 H Plt Count 188 MPV 10.6 H Immature Gran % (Auto) 0.9 H Neut % (Auto) 85.4 H Lymph % (Auto) 4.0 L [place] % (Auto) 9.0 H Eos % (Auto) 0.5 Baso % (Auto) 0.2 Lymph # (Auto) 0.32 L [place] # (Auto) 0.7 H Eos # (Auto) 0.0 Baso # (Auto) 0.0 Abs Immat Gran (auto) 0.07 H Absolute Neuts (auto) 6.8 H Absolute Nucleated RBC 0.000 Nucleated RBC % 0.0 Sodium 133 L Potassium 3.0 L Chloride 100 Carbon Dioxide 26 Anion Gap 7 BUN 6 L Creatinine 0.35 L Estim Creat Clear Calc 75 Estimated GFR > 60 Glucose 97 Calcium 8.4 Magnesium 1.8 Total Bilirubin 0.8 AST 16 ALT 11 Alkaline Phosphatase 133 H Total Protein 7.0 Albumin 2.4 L
--- NOTE | 2024-08-09 13:57 | P.PNGI_ITS ---
Progress Note: A&P Assessment and Plan (1) Iron deficiency anemia: Code(s): D50.9 - Iron deficiency anemia, unspecified Status: Acute Assessment and Plan: egd no major findings to explain anemia will attempt colonoscopy soon, given her more laxatives in the meantime anemia also could be explained by enlarged LN- oncology on board and bx path report pending (2) Mediastinal mass: Code(s): J98.59 - Other diseases of mediastinum, not elsewhere classified Status: Acute (3) Fecal impaction: Code(s): K56.41 - Fecal impaction Status: Acute (4) Decubitus ulcer of ischium, stage 2: Qualifiers: Laterality: left Qualified Code(s): L89.322 - Pressure ulcer of left buttock, stage 2 Code(s): L89.302 - Pressure ulcer of unspecified buttock, stage 2 Status: Acute Subjective Date/time seen: 08/09/24 13:57 Interval history: no changes still not good BM s/p lymph node biopsy Review of Systems Review of Systems: All systems reviewed & are unremarkable except as noted in HPI and below Exam Const: General: comfortable and no acute distress HENMT: Face/Nose/Sinus: Normal nares present Eyes: General: appearance normal, both eyes and all related structures Neck: Neck: supple Other: + LN, s/p bx Resp: Auscultation: clear to auscultation bilaterally Cardio: Rate: regular rate Rhythm: regular rhythm GI: Inspection: non-distended GI Palp: Yes Soft to palpation Auscultation: normal bowel sounds Skin: General skin exam: normal color Neuro: Speech: normal speech Extrem: General: normal to inspection Psych: Mental Status: mental status grossly normal Objective Data Vital Signs Vital Signs: Vital Signs - 24 hr 08/08/24 14:43 08/08/24 14:53 08/08/24 15:03 Temperature Pulse Rate 84 86 83 Respiratory Rate 20 18 22 H Blood Pressure 81/52 L 80/50 L 82/50 L Pulse Oximetry 99 99 99 Oxygen Delivery Room Air Room Air Room Air 08/08/24 15:13 08/08/24 15:22 08/08/24 15:45 Temperature 97.2 F L Pulse Rate 85 80 81 Respiratory Rate 18 18 18 Blood Pressure 94/51 L 101/62 119/71 Pulse Oximetry 99 99 99 Oxygen Delivery Room Air Room Air 08/08/24 20:00 08/08/24 21:47 08/09/24 06:00 Temperature 97.2 F L 97.6 F Pulse Rate 86 72 Respiratory Rate 18 18 Blood Pressure 105/61 119/58 L Pulse Oximetry 99 99 Oxygen Delivery Room Air 08/09/24 08:00 Temperature Pulse Rate Respiratory Rate Blood Pressure Pulse Oximetry Oxygen Delivery Room Air Intake/Output Intake/Output: Intake & Output 08/06/24 08/07/24 08/08/24 08/09/24 23:59 23:59 23:59 23:59 Intake Total 2185 2131 1240 458 Output Total 450 350 Balance 1735 1781 1240 458 Meds/Results Medications: Active Medications Generic Name Dose Route Start Last Admin Trade Name Freq PRN Reason Stop Dose Admin Acetaminophen 650 mg 08/05/24 15:39 Acetaminophen 325 Mg Tablet PO Q6H PRN Mild Pain (1-3) or Fever Calcium Carbonate 200 mg 08/09/24 12:32 Calcium Carbonate (Tums) 500 Mg (200 Mg Elemental) PO Q6H PRN Indigestion Cephalexin HCl 500 mg 08/07/24 12:35 08/09/24 07:54 Cephalexin 500 Mg Capsule PO 08/11/24 21:01 500 mg Q12HR [facility] Administration Polyethylene Glycol 119 gm 08/10/24 20:00 Polyethylene Glycol 3350 238 Gm Bottle PO 08/11/24 05:01 BID@0500,2000 [facility] Polyethylene Glycol 119 gm 08/11/24 20:00 Polyethylene Glycol 3350 238 Gm Bottle PO 08/12/24 05:01 BID@0500,1999 [facility] Radiology Results: ITS Impressions Chest X-Ray 08/05/24 10:51 IMPRESSION: No focal infiltrate or effusion. Asymmetric enlargement of the superior mediastinum representing either lymphadenopathy versus intrathoracic extension of the thyroid gland for which cross-sectional imaging (noncontrast enhanced CT examination of the chest) may be performed for further evaluation, when the patient is clinically able. Chest/Abdomen/Pelvis CT 08/05/24 12:05 IMPRESSION: Large middle mediastinal mass containing bulky calcifications and demonstrating contrast enhancement. Significant lymphadenopathy is identified within the right supraclavicular lymph node station. Right hilar lymphadenopathy is also noted. Scattered pathologically enlarged and morphologically suspicious lymph nodes within the base of the neck. The left lobe of the thyroid gland is heterogeneous and contains bulky calcifications. Findings within the pelvis suggesting fecal impaction, as detailed above. Lymph Node Biopsy Ultrasound 08/07/24 13:09 IMPRESSION: 1. Successful Ultrasound-guided biopsy of 4.2 x 2.2 x 2.6 cm right supraclavicular lymph node. Labs Labs: Laboratory Results - last 24 hr 08/09/24 06:10 WBC 8.0 RBC 4.48 Hgb 12.5 Hct 39.7 MCV 88.6 MCH 27.9 MCHC 31.5 L RDW 18.4 H Plt Count 188 MPV 10.6 H Immature Gran % (Auto) 0.9 H Neut % (Auto) 85.4 H Lymph % (Auto) 4.0 L [place] % (Auto) 9.0 H Eos % (Auto) 0.5 Baso % (Auto) 0.2 Lymph # (Auto) 0.32 L [place] # (Auto) 0.7 H Eos # (Auto) 0.0 Baso # (Auto) 0.0 Abs Immat Gran (auto) 0.07 H Absolute Neuts (auto) 6.8 H Absolute Nucleated RBC 0.000 Nucleated RBC % 0.0 Sodium 133 L Potassium 3.0 L Chloride 100 Carbon Dioxide 26 Anion Gap 7 BUN 6 L Creatinine 0.35 L Estim Creat Clear Calc 75 Estimated GFR > 60 Glucose 97 Calcium 8.4 Magnesium 1.8 Total Bilirubin 0.8 AST 16 ALT 11 Alkaline Phosphatase 133 H Total Protein 7.0 Albumin 2.4 L
[2024-08-09 14:00] VITALS: BP 110/55; PULSE 88; RESP 16; TEMP 36.6; O2SAT 98
[2024-08-09] MEDS: BISACODYL 5 MG TABLET EC 10 MG PO (14:19)
[2024-08-09] MEDS: LACTULOSE 20 GM/30 ML UDC PO (14:19)
--- NOTE | 2024-08-09 14:42 | PM.IMPN ---
Progress Note: A&P Assessment and Plan (1) Sepsis: Qualifiers: Sepsis acute organ dysfunction status: without acute organ dysfunction Sepsis type: sepsis due to unspecified organism Qualified Code(s): A41.9 - Sepsis, unspecified organism Code(s): A41.9 - Sepsis, unspecified organism Status: Acute (2) Urinary tract infection: Code(s): N39.0 - Urinary tract infection, site not specified Status: Acute (3) Mediastinal mass: Code(s): J98.59 - Other diseases of mediastinum, not elsewhere classified Status: Acute (4) Decubitus ulcer of ischium, stage 2: Qualifiers: Laterality: left Qualified Code(s): L89.322 - Pressure ulcer of left buttock, stage 2 Code(s): L89.302 - Pressure ulcer of unspecified buttock, stage 2 Status: Acute (5) Abnormal imaging of thyroid: Code(s): R93.89 - Abnormal findings on diagnostic imaging of other specified body structures Status: Acute (6) Fecal impaction: Code(s): K56.41 - Fecal impaction Status: Acute Plan The patient presented to the emergency department with complaints of weakness and unintentional weight loss # Severe sepsis AND UTI She meets sepsis criteria with tachycardia, tachypnea, leukocytosis, and elevated lactic acid level resulting from urinary tract infection. received 30 mL/kg IV fluid bolus in the ED with elevation of her lactic acid level. Hypotension upon arrival to the ED Received fluid resuscitation blood pressure became stable Blood pressures have been running at the lower end of normal but are stable. Blood and urine cultures are pending. received cefepime 2 g and vancomycin 1000 mg in the ED changed to ceftriaxone 1 g Q 24 hours and vancomycin to cover for urinary tract infection and possible infection of the left hip decubitus ulcer. # infection of the left hip decubitus ulcer. abx see above consult wound care # Large middle mediastinal mass CT scan shows a large medial mediastinal mass ultrasound-guided biopsy of a supraclavicular lymph node per [place] consult medical pathologist oncologist. hematology oncologist considers lymphoma versus metastatic disease, pending biopsy of right supraclavicular lymph node # Severe anemia Hemoglobin 5.4 on 08/06/2024 Blood pressure low Status post PRBC transfusion Which in is stable since then Transfuse p.r.n. Follow-up stool guaiac, iron panel, haptoglobin, reticulocyte, iron panel Consult GI for evaluation treatment FOBT came back negative Iron studies with anemia of chronic disease Status post EGD 08/08/2024: Hiatal hernia Status post colonoscopy 08/08/2024: Poor prep. Plan to re-attempt after 2 day prep next week # Patient has physical deconditioning, severe malnutrition, Patient has difficulty moving her out off bed Consult dietitian for supplement Consult PT OT addiction social worker for evaluation, patient may benefit from correction placement # Hypokalemia, potassium 2.7 Replete with potassium chloride 40 mEq IV once and 40 mg p.o. once Follow-up BMP # code status to be DO NOT RESUSCITATE Subjective Date/time seen: 08/09/24 14:42 Interval history: No new complaints. Awaiting colonoscopy next week Review of Systems Review of Systems: All systems reviewed & are unremarkable except as noted in HPI and below Exam Narrative: GENERAL: Thin built, cachectic in no acute distress. Well-nourished. - EYES: EOMI. Anicteric. - HENT: Moist mucous membranes. - LUNGS: Clear to auscultation bilaterally, no wheezing, rhonchi, or rales. - CARDIOVASCULAR: Regular rate and rhythm. No murmur. No JVD. - ABDOMEN: Soft, non-tender and non-distended. No palpable masses. - EXTREMITIES: No edema. Peripheral pulses 2+. Non-tender. - NEUROLOGIC: No focal neurological deficits. CN II-XII grossly intact. - PSYCHIATRIC: Awake, Alert and oriented x 3. Appropriate mood and affect. - SKIN: Stage II sacral decubitus ulcer - LYMPH: No cervical lymphadenopathy. Objective Data Vital Signs Vital Signs: Vital Signs - 24 hr 08/08/24 14:43 08/08/24 14:53 08/08/24 15:03 Temperature Pulse Rate 84 86 83 Respiratory Rate 20 18 22 H Blood Pressure 81/52 L 80/50 L 82/50 L Pulse Oximetry 99 99 99 Oxygen Delivery Room Air Room Air Room Air 08/08/24 15:13 08/08/24 15:22 08/08/24 15:45 Temperature 97.2 F L Pulse Rate 85 80 81 Respiratory Rate 18 18 18 Blood Pressure 94/51 L 101/62 119/71 Pulse Oximetry 99 99 99 Oxygen Delivery Room Air Room Air 08/08/24 20:00 08/08/24 21:47 08/09/24 06:00 Temperature 97.2 F L 97.6 F Pulse Rate 86 72 Respiratory Rate 18 18 Blood Pressure 105/61 119/58 L Pulse Oximetry 99 99 Oxygen Delivery Room Air 08/09/24 08:00 08/09/24 14:00 Temperature 97.9 F Pulse Rate 88 Respiratory Rate 16 Blood Pressure 110/55 L Pulse Oximetry 98 Oxygen Delivery Room Air Intake/Output Intake/Output: Intake & Output 08/06/24 08/07/24 08/08/24 08/09/24 23:59 23:59 23:59 23:59 Intake Total 2185 2131 1240 458 Output Total 450 350 Balance 1735 1781 1240 458 Meds/Results Medications: Active Medications Generic Name Dose Route Start Last Admin Trade Name Freq PRN Reason Stop Dose Admin Acetaminophen 650 mg 08/05/24 15:39 Acetaminophen 325 Mg Tablet PO Q6H PRN Mild Pain (1-3) or Fever Calcium Carbonate 200 mg 08/09/24 12:32 Calcium Carbonate (Tums) 500 Mg (200 Mg Elemental) PO Q6H PRN Indigestion Cephalexin HCl 500 mg 08/07/24 12:35 08/09/24 07:54 Cephalexin 500 Mg Capsule PO 08/11/24 21:01 500 mg Q12HR [facility] Administration Polyethylene Glycol 119 gm 08/10/24 20:00 Polyethylene Glycol 3350 238 Gm Bottle PO 08/11/24 05:01 BID@0500,2000 [facility] Polyethylene Glycol 119 gm 08/11/24 20:00 Polyethylene Glycol 3350 238 Gm Bottle PO 08/12/24 05:01 BID@0500,1999 [facility] Radiology Results: ITS Impressions Chest X-Ray 08/05/24 10:51 IMPRESSION: No focal infiltrate or effusion. Asymmetric enlargement of the superior mediastinum representing either lymphadenopathy versus intrathoracic extension of the thyroid gland for which cross-sectional imaging (noncontrast enhanced CT examination of the chest) may be performed for further evaluation, when the patient is clinically able. Chest/Abdomen/Pelvis CT 08/05/24 12:05 IMPRESSION: Large middle mediastinal mass containing bulky calcifications and demonstrating contrast enhancement. Significant lymphadenopathy is identified within the right supraclavicular lymph node station. Right hilar lymphadenopathy is also noted. Scattered pathologically enlarged and morphologically suspicious lymph nodes within the base of the neck. The left lobe of the thyroid gland is heterogeneous and contains bulky calcifications. Findings within the pelvis suggesting fecal impaction, as detailed above. Lymph Node Biopsy Ultrasound 08/07/24 13:09 IMPRESSION: 1. Successful Ultrasound-guided biopsy of 4.2 x 2.2 x 2.6 cm right supraclavicular lymph node. Labs Labs: Laboratory Results - last 24 hr 08/09/24 06:10 WBC 8.0 RBC 4.48 Hgb 12.5 Hct 39.7 MCV 88.6 MCH 27.9 MCHC 31.5 L RDW 18.4 H Plt Count 188 MPV 10.6 H Immature Gran % (Auto) 0.9 H Neut % (Auto) 85.4 H Lymph % (Auto) 4.0 L [place] % (Auto) 9.0 H Eos % (Auto) 0.5 Baso % (Auto) 0.2 Lymph # (Auto) 0.32 L [place] # (Auto) 0.7 H Eos # (Auto) 0.0 Baso # (Auto) 0.0 Abs Immat Gran (auto) 0.07 H Absolute Neuts (auto) 6.8 H Absolute Nucleated RBC 0.000 Nucleated RBC % 0.0 Sodium 133 L Potassium 3.0 L Chloride 100 Carbon Dioxide 26 Anion Gap 7 BUN 6 L Creatinine 0.35 L Estim Creat Clear Calc 75 Estimated GFR > 60 Glucose 97 Calcium 8.4 Magnesium 1.8 Total Bilirubin 0.8 AST 16 ALT 11 Alkaline Phosphatase 133 H Total Protein 7.0 Albumin 2.4 L
[2024-08-09 21:25] VITALS: BP 109/68; PULSE 90; RESP 18; TEMP 36.6; O2SAT 95; O2SAT 98
[2024-08-10 06:00] VITALS: BP 116/72; PULSE 86; RESP 18; TEMP 35.9; O2SAT 99
[2024-08-10 06:07] LABS: Basophils Percent Auto 0.3 % (0.2-1.2); Eosinophils Percent Auto 0.5 % (0-4.4); Hematocrit 38.5 % (37.0-47.0); Hemoglobin 11.8 g/dL (12.0-15.0); Immature Granulocyte Absolute 0.09 K/mm3 (0.00-0.031); Immature Granulocyte Percent A 1.2 % (0-0.5); Lymphocytes Absolute Auto 0.38 K/mm3 (0.9-3.2); Lymphocytes Percent Auto 5.1 % (18.3-44.2); Mean Corpuscular HGB Conc 30.6 g/dl (32-36); Mean Corpuscular Hemoglobin 27.8 pg (26-34); Mean Corpuscular Volume 90.8 fl (80-100); Mean Platelet Volume 10.9 fl (7.4-10.4); Monocytes Absolute Auto 0.8 K/mm3 (0.1-0.6); Monocytes Percent Auto 10.5 % (2.6-8.5); Neutrophils Absolute Auto 6.2 K/mm3 (1.3-6.7); Neutrophils Percent Auto 82.4 % (45.5-73.1); Platelet Count Result 180 k/mm3 (150-375); Red Blood Count 4.24 M/mm3 (4.2-5.4); Red Cell Distribution Width 18.7 % (11.5-14.5); White Blood Count 7.5 K/mm3 (4.5-10.0)
[2024-08-10 06:21] LABS: Alanine Aminotransferase 12 U/L (6-35); Albumin Level 2.4 g/dL (3.5-5.1); Alkaline Phosphatase 142 U/L (38-126); Anion Gap 7 mmol/L (4-12); Aspartate Amino Transferase 21 U/L (14-36); Bilirubin,Total 0.7 mg/dL (0.2-1.3); Blood Urea Nitrogen 8 mg/dL (7-17); Calcium 8.3 mg/dL (8.4-10.2); Carbon Dioxide 25 mmol/L (22-30); Chloride 100 mmol/L (98-107); Estimated CRCL calculation 88 ml/min; Estimated Glomerular Filt Rate > 60; Glucose 98 mg/dL (65-110); Magnesium 1.9 mg/dL (1.6-2.3); Potassium 3.3 mmol/L (3.4-5.0); Sodium 132 mmol/L (137-145)
[2024-08-10 08:32] VITALS: O2SAT 97
[2024-08-10] MEDS: CEPHALEXIN 500 MG CAPSULE PO ×2 (08:37→21:16)
--- NOTE | 2024-08-10 12:40 | P.PNIM_ITS ---
Progress Note: A&P Assessment and Plan (1) Sepsis: Qualifiers: Sepsis acute organ dysfunction status: without acute organ dysfunction Sepsis type: sepsis due to unspecified organism Qualified Code(s): A41.9 - S epsis, unspecified organism Code(s): A41.9 - Sepsis, unspecified organism Status: Acute (2) Urinary tract infection: Code(s): N39.0 - Urinary tract infection, site not specified Status: Acute (3) Mediastinal mass: Code(s): J98.59 - Other diseases of mediastinum, not elsewhere classified Status: Acute (4) Decubitus ulcer of ischium, stage 2: Qualifiers: Laterality: left Qualified Code(s): L89.322 - Pressure ulcer of left buttock, stage 2 Code(s): L89.302 - Pressure ulcer of unspecified buttock, stage 2 Status: Acute (5) Abnormal imaging of thyroid: Code(s): R93.89 - Abnormal findings on diagnostic imaging of other specified body structures Status: Acute (6) Fecal impaction: Code(s): K56.41 - Fecal impaction Status: Acute Plan The patient presented to the emergency department with complaints of weakness and unintentional weight loss # Severe sepsis AND UTI She meets sepsis criteria with tachycardia, tachypnea, leukocytosis, and elevated lactic acid level resulting from urinary tract infection. received 30 mL/kg IV fluid bolus in the ED with elevation of her lactic acid level. Hypotension upon arrival to the ED Received fluid resuscitation blood pressure became stable Blood pressures have been running at the lower end of normal but are stable. Blood and urine cultures are pending. received cefepime 2 g and vancomycin 1000 mg in the ED changed to ceftriaxone 1 g Q 24 hours and vancomycin to cover for urinary tract infection and possible infection of the left hip decubitus ulcer. # infection of the left hip decubitus ulcer. abx see above consult wound care # Large middle mediastinal mass CT scan shows a large medial mediastinal mass ultrasound-guided biopsy of a supraclavicular lymph node per [place] former consult [place] oncologist. hematology oncologist considers lymphoma versus metastatic disease, pending biopsy of right supraclavicular lymph node # Severe anemia Hemoglobin 5.4 on 08/06/2024 Blood pressure low Status post PRBC transfusion Which in is stable since then Transfuse p.r.n. Follow-up stool guaiac, iron panel, haptoglobin, reticulocyte, iron panel Consult GI for evaluation treatment FOBT came back negative Iron studies with anemia of chronic disease Status post EGD 08/08/2024: Hiatal hernia Status post colonoscopy 08/08/2024: Poor prep. Plan to re-attempt after 2 day prep next week # Patient has physical deconditioning, severe malnutrition, Patient has difficulty moving her out off bed Consult dietitian for supplement Consult PT OT older adult social work specialist for evaluation, patient may benefit from senior care placement # Hypokalemia, potassium 2.7 Replete with potassium chloride 40 mEq IV once and 40 mg p.o. once Follow-up BMP # code status to be DO NOT RESUSCITATE Subjective Date/time seen: 08/10/24 12:40 Interval history: No new complaints. No abdominal pain nausea vomiting. Review of Systems Review of Systems: All systems reviewed & are unremarkable except as noted in HPI and below Exam Narrative: GENERAL: Thin built, cachectic in no acute distress. Well-nourished. - EYES: EOMI. Anicteric. - HENT: Moist mucous membranes. - LUNGS: Clear to auscultation bilateral ly, no wheezing, rhonchi, or rales. - CARDIOVASCULAR: Regular rate and rhyth m. No murmur. No JVD. - ABDOMEN: Soft, non-tender and non-dist ended. No palpable masses. - EXTREMITIES: No edema. Peripheral puls es 2+. Non-tender. - NEUROLOGIC: No focal neurological defi cits. CN II-XII grossly intact. - PSYCHIATRIC: Awake, Alert and oriented x 3. Appropriate mood and affect. - SKIN: Stage II sacral decubitus ulcer - LYMPH: No cervical lymphadenopathy. Objective Data Vital Signs Vital Signs: Vital Signs - 24 hr 08/09/24 14:00 08/09/24 20:54 08/09/24 21:25 Temperature 97.9 F 97.8 F Pulse Rate 88 90 Respiratory Rate 16 18 Blood Pressure 110/55 L 109/68 Pulse Oximetry 98 98 Oxygen Delivery Room Air Fraction of Inspired Oxygen 08/09/24 21:25 08/10/24 06:00 08/10/24 08:00 Temperature 96.7 F L Pulse Rate 86 Respiratory Rate 18 Blood Pressure 116/72 Pulse Oximetry 95 99 Oxygen Delivery Face Tent Room Air Fraction of Inspired Oxygen 08/10/24 08:32 Temperature Pulse Rate Respiratory Rate Blood Pressure Pulse Oximetry 97 Oxygen Delivery Room Air Fraction of Inspired Oxygen 21 Intake/Output Intake/Output: Intake & Output 08/07/24 08/08/24 08/09/24 08/10/24 23:59 23:59 23:59 23:59 Intake Total 2131 1240 1498 600 Output Total 350 Balance 1781 1240 1498 600 Meds/Results Medications: Active Medications Generic Name Dose Route Start Last Admin Trade Name Freq PRN Reason Stop Dose Admin Acetaminophen 650 mg 08/05/24 15:39 Acetaminophen 325 Mg Tablet PO Q6H PRN Mild Pain (1-3) or Fever Calcium Carbonate 200 mg 08/09/24 12:32 Calcium Carbonate (Tums) 500 Mg (200 Mg Elemental) PO Q6H PRN Indigestion Cephalexin HCl 500 mg 08/07/24 12:35 08/10/24 08:37 Cephalexin 500 Mg Capsule PO 08/11/24 21:01 500 mg Q12HR [facility] Administration Polyethylene Glycol 119 gm 08/10/24 20:00 Polyethylene Glycol 3350 238 Gm Bottle PO 08/11/24 05:01 BID@0500,2000 [facility] Polyethylene Glycol 119 gm 08/11/24 20:00 Polyethylene Glycol 3350 238 Gm Bottle PO 08/12/24 05:01 BID@0500,1999 [facility] Radiology Results: ITS Impressions Chest X-Ray 08/05/24 10:51 IMPRESSION: No focal infiltrate or effusion. Asymmetric enlargement of the superior mediastinum representing either lymphadenopathy versus intrathoracic extension of the thyroid gland for which cross-sectional imaging (noncontrast enhanced CT examination of the chest) may be performed for further evaluation, when the patient is clinically able. Chest/Abdomen/Pelvis CT 08/05/24 12:05 IMPRESSION: Large middle mediastinal mass containing bulky calcifications and demonstrating contrast enhancement. Significant lymphadenopathy is identified within the right supraclavicular lymph node station. Right hilar lymphadenopathy is also noted. Scattered pathologically enlarged and morphologically suspicious lymph nodes within the base of the neck. The left lobe of the thyroid gland is heterogeneous and contains bulky calcifications. Findings within the pelvis suggesting fecal impaction, as detailed above. Lymph Node Biopsy Ultrasound 08/07/24 13:09 IMPRESSION: 1. Successful Ultrasound-guided biopsy of 4.2 x 2.2 x 2.6 cm right supraclavicular lymph node. Labs Labs: Laboratory Results - last 24 hr 08/10/24 05:54 WBC 7.5 RBC 4.24 Hgb 11.8 L Hct 38.5 MCV 90.8 MCH 27.8 MCHC 30.6 L RDW 18.7 H Plt Count 180 MPV 10.9 H Immature Gran % (Auto) 1.2 H Neut % (Auto) 82.4 H Lymph % (Auto) 5.1 L [place] % (Auto) 10.5 H Eos % (Auto) 0.5 Baso % (Auto) 0.3 Lymph # (Auto) 0.38 L [place] # (Auto) 0.8 H Eos # (Auto) 0.0 Baso # (Auto) 0.0 Abs Immat Gran (auto) 0.09 H Absolute Neuts (auto) 6.2 Absolute Nucleated RBC 0.000 Nucleated RBC % 0.0 Sodium 132 L Potassium 3.3 L Chloride 100 Carbon Dioxide 25 Anion Gap 7 BUN 8 Creatinine 0.29 L Estim Creat Clear Calc 88 Estimated GFR > 60 Glucose 98 Calcium 8.3 L Magnesium 1.9 Total Bilirubin 0.7 AST 21 ALT 12 Alkaline Phosphatase 142 H Total Protein 7.0 Albumin 2.4 L
[2024-08-10] MEDS: POTASSIUM CHLORIDE 20 MEQ ER TABLET 40 MEQ PO (13:01)
[2024-08-10 14:00] VITALS: BP 103/52; PULSE 80; RESP 16; TEMP 36.9; O2SAT 100
--- NOTE | 2024-08-10 14:04 | P.PNGI_ITS ---
Progress Note: A&P Assessment and Plan (1) Iron deficiency anemia: Code(s): D50.9 - Iron deficiency anemia, unspecified Status: Acute Assessment and Plan: egd no major findings to explain anemia bowel prep today and if clean out then will attempt colonoscopy tomorrow anemia also could be explained by enlarged LN- oncology on board and bx path report pending (2) Mediastinal mass: Code(s): J98.59 - Other diseases of mediastinum, not elsewhere classified Status: Acute Assessment and Plan: bx supraclavicular pending (3) Fecal impaction: Code(s): K56.41 - Fecal impaction Status: Acute (4) Decubitus ulcer of ischium, stage 2: Qualifiers: Laterality: left Qualified Code(s): L89.322 - Pressure ulcer of left buttock, stage 2 Code(s): L89.302 - Pressure ulcer of unspecified buttock, stage 2 Status: Acute (5) Sepsis: Qualifiers: Sepsis acute organ dysfunction status: without acute organ dysfunction Sepsis type: sepsis due to unspecified organism Qualified Code(s): A41.9 - Sepsis, unspecified organism Code(s): A41.9 - Sepsis, unspecified organism Status: Acute Assessment and Plan: treated (6) UTI (urinary tract infection): Qualifiers: Hematuria presence: with hematuria Urinary tract infection type: acute cystitis Qualified Code(s): N30.01 - Acute cystitis with hematuria Code(s): N39.0 - Urinary tract infection, site not specified Status: Acute (7) Hypokalemia: Code(s): E87.6 - Hypokalemia Status: Acute Assessment and Plan: repleting Subjective Date/time seen: 08/10/24 14:04 Interval history: no changes, still no BM Review of Systems Review of Systems: All systems reviewed & are unremarkable except as noted in HPI and below Exam Const: General: comfortable and no acute distress HENMT: Face/Nose/Sinus: Normal nares present Eyes: General: appearance normal, both eyes and all related structures Neck: Neck: supple Other: + LN, s/p bx Resp: Auscultation: clear to auscultation bilaterally Cardio: Rate: regular rate Rhythm: regular rhythm GI: Inspection: non-distended GI Palp: Yes Soft to palpation Auscultation: normal bowel sounds Skin: Other: stage II decubitus ulcer Neuro: Speech: normal speech Extrem: General: normal to inspection Psych: Mental Status: mental status grossly normal Objective Data Vital Signs Vital Signs: Vital Signs - 24 hr 08/09/24 20:54 08/09/24 21:25 08/09/24 21:25 Temperature 97.8 F Pulse Rate 90 Respiratory Rate 18 Blood Pressure 109/68 Pulse Oximetry 98 95 Oxygen Delivery Room Air Face Tent Fraction of Inspired Oxygen 08/10/24 06:00 08/10/24 08:00 08/10/24 08:32 Temperature 96.7 F L Pulse Rate 86 Respiratory Rate 18 Blood Pressure 116/72 Pulse Oximetry 99 97 Oxygen Delivery Room Air Room Air Fraction of Inspired Oxygen 21 Intake/Output Intake/Output: Intake & Output 08/07/24 08/08/24 08/09/24 08/10/24 23:59 23:59 23:59 23:59 Intake Total 2131 1240 1498 1000 Output Total 350 Balance 1781 1240 1498 1000 Meds/Results Medications: Active Medications Generic Name Dose Route Start Last Admin Trade Name Freq PRN Reason Stop Dose Admin Acetaminophen 650 mg 08/05/24 15:39 Acetaminophen 325 Mg Tablet PO Q6H PRN Mild Pain (1-3) or Fever Bisacodyl 20 mg 08/10/24 15:00 Bisacodyl 5 Mg Tablet Ec PO 08/10/24 15:01 ONCE ONE Calcium Carbonate 200 mg 08/09/24 12:32 Calcium Carbonate (Tums) 500 Mg (200 Mg Elemental) PO Q6H PRN Indigestion Cephalexin HCl 500 mg 08/07/24 12:35 08/10/24 08:37 Cephalexin 500 Mg Capsule PO 08/11/24 21:01 500 mg Q12HR [facility] Administration Magnesium Citrate 300 ml 08/10/24 23:30 Magnesium Citrate 300 Ml Btl PO 08/10/24 23:31 ONCE ONE Polyethylene Glycol 119 gm 08/10/24 20:00 Polyethylene Glycol 3350 238 Gm Bottle PO 08/11/24 05:01 BID@0500,2000 [facility] Polyethylene Glycol 238 gm 08/10/24 15:00 Polyethylene Glycol 3350 238 Gm Bottle PO 08/10/24 15:01 ONCE ONE Radiology Results: ITS Impressions Chest X-Ray 08/05/24 10:51 IMPRESSION: No focal infiltrate or effusion. Asymmetric enlargement of the superior mediastinum representing either lymphadenopathy versus intrathoracic extension of the thyroid gland for which cross-sectional imaging (noncontrast enhanced CT examination of the chest) may be performed for further evaluation, when the patient is clinically able. Chest/Abdomen/Pelvis CT 08/05/24 12:05 IMPRESSION: Large middle mediastinal mass containing bulky calcifications and demonstrating contrast enhancement. Significant lymphadenopathy is identified within the right supraclavicular lymph node station. Right hilar lymphadenopathy is also noted. Scattered pathologically enlarged and morphologically suspicious lymph nodes within the base of the neck. The left lobe of the thyroid gland is heterogeneous and contains bulky calcifications. Findings within the pelvis suggesting fecal impaction, as detailed above. Lymph Node Biopsy Ultrasound 08/07/24 13:09 IMPRESSION: 1. Successful Ultrasound-guided biopsy of 4.2 x 2.2 x 2.6 cm right supraclavicular lymph node. Labs Labs: Laboratory Results - last 24 hr 08/10/24 05:54 WBC 7.5 RBC 4.24 Hgb 11.8 L Hct 38.5 MCV 90.8 MCH 27.8 MCHC 30.6 L RDW 18.7 H Plt Count 180 MPV 10.9 H Immature Gran % (Auto) 1.2 H Neut % (Auto) 82.4 H Lymph % (Auto) 5.1 L [place] % (Auto) 10.5 H Eos % (Auto) 0.5 Baso % (Auto) 0.3 Lymph # (Auto) 0.38 L [place] # (Auto) 0.8 H Eos # (Auto) 0.0 Baso # (Auto) 0.0 Abs Immat Gran (auto) 0.09 H Absolute Neuts (auto) 6.2 Absolute Nucleated RBC 0.000 Nucleated RBC % 0.0 Sodium 132 L Potassium 3.3 L Chloride 100 Carbon Dioxide 25 Anion Gap 7 BUN 8 Creatinine 0.29 L Estim Creat Clear Calc 88 Estimated GFR > 60 Glucose 98 Calcium 8.3 L Magnesium 1.9 Total Bilirubin 0.7 AST 21 ALT 12 Alkaline Phosphatase 142 H Total Protein 7.0 Albumin 2.4 L
--- NOTE | 2024-08-10 14:19 | WPDONCPN ---
Progress Note: A&P Assessment and Plan (1) Mediastinal mass: Code(s): J98.59 - Other diseases of mediastinum, not elsewhere classified Status: Acute Assessment and Plan: Patient with large mediastinal mass on CT chest/abd/pelvis performed 08/05/24. There was Right supraclavicular lymphadenopathy. Patient underwent Right supraclavicular lymph node biopsy on 08/07/24 by IR. We await pathology. suspicion for lymphoma. (2) Iron deficiency anemia: Code(s): D50.9 - Iron deficiency anemia, unspecified Status: Acute Assessment and Plan: Presented with low iron saturations, ferritin was high but could be elevated due to inflammation (?cancer). GI attempted colonoscopy on 08/08/24 which was poor prep with hard stool and procedure was aborted. Plan is to give water enemas in the and sunday and second attempt will be made on sunday08/12/24. EGD showed hiatal hernia. Subjective Date/time seen: 08/10/24 14:19 Interval history: No overnight events. Patient resting and seen at bedside. Review of Systems Review of Systems States that she feels ill for a while. She has been laying in bed with no energy since 03/2024. Has bed sores per patient. Denies chest pain, dyspnea, cough or hemoptysis. Denies nausea and vomiting. She is getting water enema for impending colonoscopy on 08/12/24. Exam Narrative: Alert and orientedx3, ill appearing female in no acute distress HEENT: PERRL, EOMI CV: RRR, no m/g/r RESP: CTAB ABD: Soft, NT, ND, BS+ EXT: no cyanosis. Objective Data Vital Signs Vital Signs: Vital Signs - 24 hr 08/09/24 20:54 08/09/24 21:25 08/09/24 21:25 Temperature 36.6 C Pulse Rate 90 Respiratory Rate 18 Blood Pressure 109/68 Pulse Oximetry 98 95 Oxygen Delivery Room Air Face Tent Fraction of Inspired Oxygen 08/10/24 06:00 08/10/24 08:00 08/10/24 08:32 Temperature 35.9 C L Pulse Rate 86 Respiratory Rate 18 Blood Pressure 116/72 Pulse Oximetry 99 97 Oxygen Delivery Room Air Room Air Fraction of Inspired Oxygen 21 Intake/Output Intake/Output: Intake & Output 08/07/24 08/08/24 08/09/24 08/10/24 23:59 23:59 23:59 23:59 Intake Total 2131 1240 1498 1000 Output Total 350 Balance 1781 1240 1498 1000 Meds/Results Medications: Active Medications Generic Name Dose Route Start Last Admin Trade Name Freq PRN Reason Stop Dose Admin Acetaminophen 650 mg 08/05/24 15:39 Acetaminophen 325 Mg Tablet PO Q6H PRN Mild Pain (1-3) or Fever Bisacodyl 20 mg 08/10/24 15:00 Bisacodyl 5 Mg Tablet Ec PO 08/10/24 15:01 ONCE ONE Calcium Carbonate 200 mg 08/09/24 12:32 Calcium Carbonate (Tums) 500 Mg (200 Mg Elemental) PO Q6H PRN Indigestion Cephalexin HCl 500 mg 08/07/24 12:35 08/10/24 08:37 Cephalexin 500 Mg Capsule PO 08/11/24 21:01 500 mg Q12HR KANNAN Administration Magnesium Citrate 300 ml 08/10/24 23:30 Magnesium Citrate 300 Ml Btl PO 08/10/24 23:31 ONCE ONE Polyethylene Glycol 238 gm 08/10/24 15:00 Polyethylene Glycol 3350 238 Gm Bottle PO 08/10/24 15:01 ONCE ONE Radiology Results: ITS Impressions Chest X-Ray 08/05/24 10:51 IMPRESSION: No focal infiltrate or effusion. Asymmetric enlargement of the superior mediastinum representing either lymphadenopathy versus intrathoracic extension of the thyroid gland for which cross-sectional imaging (noncontrast enhanced CT examination of the chest) may be performed for further evaluation, when the patient is clinically able. Chest/Abdomen/Pelvis CT 08/05/24 12:05 IMPRESSION: Large middle mediastinal mass containing bulky calcifications and demonstrating contrast enhancement. Significant lymphadenopathy is identified within the right supraclavicular lymph node station. Right hilar lymphadenopathy is also noted. Scattered pathologically enlarged and morphologically suspicious lymph nodes within the base of the neck. The left lobe of the thyroid gland is heterogeneous and contains bulky calcifications. Findings within the pelvis suggesting fecal impaction, as detailed above. Lymph Node Biopsy Ultrasound 08/07/24 13:09 IMPRESSION: 1. Successful Ultrasound-guided biopsy of 4.2 x 2.2 x 2.6 cm right supraclavicular lymph node. Labs Labs: Laboratory Results - last 24 hr 08/10/24 05:54 WBC 7.5 RBC 4.24 Hgb 11.8 L Hct 38.5 MCV 90.8 MCH 27.8 MCHC 30.6 L RDW 18.7 H Plt Count 180 MPV 10.9 H Immature Gran % (Auto) 1.2 H Neut % (Auto) 82.4 H Lymph % (Auto) 5.1 L [place] % (Auto) 10.5 H Eos % (Auto) 0.5 Baso % (Auto) 0.3 Lymph # (Auto) 0.38 L [place] # (Auto) 0.8 H Eos # (Auto) 0.0 Baso # (Auto) 0.0 Abs Immat Gran (auto) 0.09 H Absolute Neuts (auto) 6.2 Absolute Nucleated RBC 0.000 Nucleated RBC % 0.0 Sodium 132 L Potassium 3.3 L Chloride 100 Carbon Dioxide 25 Anion Gap 7 BUN 8 Creatinine 0.29 L Estim Creat Clear Calc 88 Estimated GFR > 60 Glucose 98 Calcium 8.3 L Magnesium 1.9 Total Bilirubin 0.7 AST 21 ALT 12 Alkaline Phosphatase 142 H Total Protein 7.0 Albumin 2.4 L
[2024-08-10] MEDS: BISACODYL 5 MG TABLET EC 20 MG PO (14:35)
[2024-08-10] MEDS: polyethylene glycoL 3350 238 GM BOTTLE PO (14:37)
[2024-08-10 20:36] VITALS: O2SAT 100
[2024-08-10] MEDS: MAGNESIUM CITRATE 300 ML BTL PO (21:17)
[2024-08-10 22:00] VITALS: BP 107/64; PULSE 96; RESP 20; TEMP 36.2; O2SAT 96
[2024-08-10] MEDS: ACETAMINOPHEN 325 MG TABLET 650 MG PO (22:33)
[2024-08-11 06:00] VITALS: BP 108/63; PULSE 87; RESP 16; TEMP 36.3; O2SAT 99
[2024-08-11] MEDS: CEPHALEXIN 500 MG CAPSULE PO ×2 (08:12→20:34)
--- NOTE | 2024-08-11 09:43 | PCPTNOTE ---
Attempted therapy session, Pt is sleeping, unable to arouse. Will continue per POC.
--- NOTE | 2024-08-11 10:11 | PCNFU ---
Nutrition Follow-Up Complete: 1. Severe malnutrition related to chronic poor intake as evidenced by intakes <75% needs > 1 month; weight loss 15%/4 months; severe muscle wasting and fat loss 2. Increased protein energy needs related to wound healing as evidenced by stage 2 pressure injury to sacrum Goal:Diet orders PO intake to improve to 50% meals Pt was progressing towards goals. Pt current nutrition is NPO today for colonoscopy. Nutrition recommendation: Resume diet orders post procedure with Ensure Enlive TID with meals Last recorded weight is 44.9 kg. Bowel Motility: +BM 08/09 Labs Reviewed: Hgb:11.8, Alb:2.4, NA:132, K:3.3, Cr:0.2 Meds Noted: tums Skin: Stage II to sacrum Additional Notes: Pt was on a full liquid diet with good intake, NPO today for colonoscopy. Recommend to resume diet post procedure, add Ensure Enlive TID for an additional 350kcals, 20g protein per shake, Add VELASQUEZ BID for wound healing. Encourage po intake. Monitoring diet orders, weights, labs, wounds, plan of care. Follow up in 3 days.
--- NOTE | 2024-08-11 11:24 | P.PNIM_ITS ---
Progress Note: A&P Assessment and Plan (1) Sepsis: Qualifiers: Sepsis acute organ dysfunction status: without acute organ dysfunction Sepsis type: sepsis due to unspecified organism Qualified Code(s): A41.9 - S epsis, unspecified organism Code(s): A41.9 - Sepsis, unspecified organism Status: Acute (2) Urinary tract infection: Code(s): N39.0 - Urinary tract infection, site not specified Status: Acute (3) Mediastinal mass: Code(s): J98.59 - Other diseases of mediastinum, not elsewhere classified Status: Acute (4) Decubitus ulcer of ischium, stage 2: Qualifiers: Laterality: left Qualified Code(s): L89.322 - Pressure ulcer of left buttock, stage 2 Code(s): L89.302 - Pressure ulcer of unspecified buttock, stage 2 Status: Acute (5) Abnormal imaging of thyroid: Code(s): R93.89 - Abnormal findings on diagnostic imaging of other specified body structures Status: Acute (6) Fecal impaction: Code(s): K56.41 - Fecal impaction Status: Acute Plan The patient presented to the emergency department with complaints of weakness and unintentional weight loss # Severe sepsis AND UTI She meets sepsis criteria with tachycardia, tachypnea, leukocytosis, and elevated lactic acid level resulting from urinary tract infection. received 30 mL/kg IV fluid bolus in the ED with elevation of her lactic acid level. Hypotension upon arrival to the ED Received fluid resuscitation blood pressure became stable Blood pressures have been running at the lower end of normal but are stable. Blood and urine cultures are pending. received cefepime 2 g and vancomycin 1000 mg in the ED changed to ceftriaxone 1 g Q 24 hours and vancomycin to cover for urinary tract infection and possible infection of the left hip decubitus ulcer. On cephalexin concludes today # infection of the left hip decubitus ulcer. abx see above consult wound care # Large middle mediastinal mass CT scan shows a large medial mediastinal mass ultrasound-guided biopsy of a supraclavicular lymph node per ceramics technician consult patient account analyst oncologist. hematology oncologist considers lymphoma versus metastatic disease, pending biopsy of right supraclavicular lymph node # Severe anemia Hemoglobin 5.4 on 08/06/2024 Blood pressure low Status post PRBC transfusion Which in is stable since then Transfuse p.r.n. Follow-up stool guaiac, iron panel, haptoglobin, reticulocyte, iron panel Consult GI for evaluation treatment FOBT came back negative Iron studies with anemia of chronic disease Status post EGD 08/08/2024: Hiatal hernia Status post colonoscopy 08/08/2024: Poor prep. Plan to re-attempt today # Patient has physical deconditioning, severe malnutrition, Patient has difficulty moving her out off bed Consult dietitian for supplement Consult PT OT psychiatric social worker for evaluation, patient may benefit from jail placement # Hypokalemia, potassium 2.7 Replete with potassium chloride 40 mEq IV once and 40 mg p.o. once Follow-up BMP # code status to be DO NOT RESUSCITATE Subjective Date/time seen: 08/11/24 11:24 Interval history: No overnight events no new complaints going for colonoscopy today. Review of Systems Review of Systems: All systems reviewed & are unremarkable except as noted in HPI and below Exam Narrative: GENERAL: Thin built, cachectic in no acute distress. Well-nourished. - EYES: EOMI. Anicteric. - HENT: Moist mucous membranes. - LUNGS: Clear to auscultation bilateral ly, no wheezing, rhonchi, or rales. - CARDIOVASCULAR: Regular rate and rhyth m. No murmur. No JVD. - ABDOMEN: Soft, non-tender and non-dist ended. No palpable masses. - EXTREMITIES: No edema. Peripheral puls es 2+. Non-tender. - NEUROLOGIC: No focal neurological defi cits. CN II-XII grossly intact. - PSYCHIATRIC: Awake, Alert and oriented x 3. Appropriate mood and affect. - SKIN: Stage II sacral decubitus ulcer - LYMPH: No cervical lymphadenopathy. Objective Data Vital Signs Vital Signs: Vital Signs - 24 hr 08/10/24 14:00 08/10/24 20:36 08/10/24 22:00 Temperature 98.5 F 97.2 F L Pulse Rate 80 96 Respiratory Rate 16 20 Blood Pressure 103/52 L 107/64 Pulse Oximetry 100 100 96 Oxygen Delivery Room Air Fraction of Inspired Oxygen 21 08/11/24 06:00 08/11/24 08:00 Temperature 97.3 F L Pulse Rate 87 Respiratory Rate 16 Blood Pressure 108/63 Pulse Oximetry 99 Oxygen Delivery Room Air Fraction of Inspired Oxygen Intake/Output Intake/Output: Intake & Output 08/08/24 08/09/24 08/10/24 08/11/24 23:59 23:59 23:59 23:59 Intake Total 1240 1498 2240 Balance 1240 1498 2240 Meds/Results Medications: Active Medications Generic Name Dose Route Start Last Admin Trade Name Freq PRN Reason Stop Dose Admin Acetaminophen 650 mg 08/05/24 15:39 08/10/24 22:33 Acetaminophen 325 Mg Tablet PO 650 mg Q6H PRN Administration Mild Pain (1-3) or Fever Bisacodyl 20 mg 08/11/24 16:00 Bisacodyl 5 Mg Tablet Ec PO 08/11/24 16:01 ONCE ONE Calcium Carbonate 200 mg 08/09/24 12:32 Calcium Carbonate (Tums) 500 Mg (200 Mg Elemental) PO Q6H PRN Indigestion Cephalexin HCl 500 mg 08/07/24 12:35 08/11/24 08:12 Cephalexin 500 Mg Capsule PO 08/11/24 21:01 500 mg Q12HR KANNAN Administration Magnesium Citrate 300 ml 08/11/24 23:00 Magnesium Citrate 300 Ml Btl PO 08/11/24 23:01 ONCE ONE Polyethylene Glycol 238 gm 08/11/24 16:00 Polyethylene Glycol 3350 238 Gm Bottle PO 08/11/24 16:01 ONCE ONE Radiology Results: ITS Impressions Chest X-Ray 08/05/24 10:51 IMPRESSION: No focal infiltrate or effusion. Asymmetric enlargement of the superior mediastinum representing either l ymphadenopathy versus intrathoracic extension of the thyroid gland for which cross-sectional imaging (noncontrast enhanced CT examination of the chest) may be performed for further evaluation, when the patient is clinically able. Chest/Abdomen/Pelvis CT 08/05/24 12:05 IMPRESSION: Large middle mediastinal mass containing bulky calcifications and demonstrating contrast enhancement. Significant lymphadenopathy is identified within the right supraclavicular lymph node station. Right hilar lymphadenopathy is also noted. Scattered pathologically enlarged and morphologically suspicious lymph nodes within the base of the neck. The left lobe of the thyroid gland is heterogeneous and contains bulky calcifications. Findings within the pelvis suggesting fecal impaction, as detailed above. Lymph Node Biopsy Ultrasound 08/07/24 13:09 IMPRESSION: 1. Successful Ultrasound-guided biopsy of 4.2 x 2.2 x 2.6 cm right supraclavicular lymph node.
[2024-08-11 14:00] VITALS: BP 118/72; PULSE 82; RESP 20; TEMP 36.9; O2SAT 100
--- NOTE | 2024-08-11 15:19 | PCPTNOTE ---
Attempted to see patient for PT, however patient refused. Patient reported she is getting ready for colonoscopy tomorrow and did not want to do therapy at this time.
[2024-08-11] MEDS: BISACODYL 5 MG TABLET EC 20 MG PO (16:13)
[2024-08-11] MEDS: polyethylene glycoL 3350 238 GM BOTTLE PO (16:13)
--- NOTE | 2024-08-11 17:19 | WPDGIPROGNO ---
Progress Note: A&P Assessment and Plan (1) Iron deficiency anemia: Code(s): D50.9 - Iron deficiency anemia, unspecified Status: Acute Assessment and Plan: egd no major findings to explain anemia she is getting more bowel prep today and tomorrow Dr Trejo will perform colonoscopy anemia also could be explained by enlarged LN- oncology on board and bx path report pending (2) Mediastinal mass: Code(s): J98.59 - Other diseases of mediastinum, not elsewhere classified Status: Acute Assessment and Plan: bx supraclavicular pending (3) Fecal impaction: Code(s): K56.41 - Fecal impaction Status: Acute Assessment and Plan: more laxativess today (4) Decubitus ulcer of ischium, stage 2: Qualifiers: Laterality: left Qualified Code(s): L89.322 - Pressure ulcer of left buttock, stage 2 Code(s): L89.302 - Pressure ulcer of unspecified buttock, stage 2 Status: Acute (5) Sepsis: Qualifiers: Sepsis acute organ dysfunction status: without acute organ dysfunction Sepsis type: sepsis due to unspecified organism Qualified Code(s): A41.9 - Sepsis, unspecified organism Code(s): A41.9 - Sepsis, unspecified organism Status: Acute Assessment and Plan: treated (6) UTI (urinary tract infection): Qualifiers: Hematuria presence: with hematuria Urinary tract infection type: acute cystitis Qualified Code(s): N30.01 - Acute cystitis with hematuria Code(s): N39.0 - Urinary tract infection, site not specified Status: Acute (7) Hypokalemia: Code(s): E87.6 - Hypokalemia Status: Acute Assessment and Plan: repleting Subjective Date/time seen: 08/11/24 17:19 Interval history: she was still having formed stool, colonoscopy is scheduled now for tomorrow. Finally staff informed that she is having loose stools today. Review of Systems Review of Systems: All systems reviewed & are unremarkable except as noted in HPI and below Objective Data Vital Signs Vital Signs: Vital Signs - 24 hr 08/10/24 20:36 08/10/24 22:00 08/11/24 06:00 Temperature 97.2 F L 97.3 F L Pulse Rate 96 87 Respiratory Rate 20 16 Blood Pressure 107/64 108/63 Pulse Oximetry 100 96 99 Oxygen Delivery Room Air Fraction of Inspired Oxygen 08/11/24 08:00 Temperature Pulse Rate Respiratory Rate Blood Pressure Pulse Oximetry Oxygen Delivery Room Air Fraction of Inspired Oxygen Intake/Output Intake/Output: Intake & Output 08/08/24 08/09/24 08/10/24 08/11/24 23:59 23:59 23:59 23:59 Intake Total 1240 1498 2240 240 Balance 1240 1498 2240 240 Meds/Results Medications: Active Medications Generic Name Dose Route Start Last Admin Trade Name Freq PRN Reason Stop Dose Admin Acetaminophen 650 mg 08/05/24 15:39 08/10/24 22:33 Acetaminophen 325 Mg Tablet PO 650 mg Q6H PRN Administration Mild Pain (1-3) or Fever Calcium Carbonate 200 mg 08/09/24 12:32 Calcium Carbonate (Tums) 500 Mg (200 Mg Elemental) PO Q6H PRN Indigestion Cephalexin HCl 500 mg 08/07/24 12:35 08/11/24 08:12 Cephalexin 500 Mg Capsule PO 08/11/24 21:01 500 mg Q12HR KANNAN Administration Magnesium Citrate 300 ml 08/11/24 23:00 Magnesium Citrate 300 Ml Btl PO 08/11/24 23:01 ONCE ONE Radiology Results: ITS Impressions Chest X-Ray 08/05/24 10:51 IMPRESSION: No focal infiltrate or effusion. Asymmetric enlargement of the superior mediastinum representing either lymphadenopathy versus intrathoracic extension of the thyroid gland for which cross-sectional imaging (noncontrast enhanced CT examination of the chest) may be performed for further evaluation, when the patient is clinically able. Chest/Abdomen/Pelvis CT 08/05/24 12:05 IMPRESSION: Large middle mediastinal mass containing bulky calcifications and demonstrating contrast enhancement. Significant lymphadenopathy is identified within the right supraclavicular lymph node station. Right hilar lymphadenopathy is also noted. Scattered pathologically enlarged and morphologically suspicious lymph nodes within the base of the neck. The left lobe of the thyroid gland is heterogeneous and contains bulky calcifications. Findings within the pelvis suggesting fecal impaction, as detailed above. Lymph Node Biopsy Ultrasound 08/07/24 13:09 IMPRESSION: 1. Successful Ultrasound-guided biopsy of 4.2 x 2.2 x 2.6 cm right supraclavicular lymph node.
--- NOTE | 2024-08-11 19:28 | WPDONCPN ---
Progress Note: A&P Assessment and Plan (1) Mediastinal mass: Code(s): J98.59 - Other diseases of mediastinum, not elsewhere classified Status: Acute Assessment and Plan: Patient with large mediastinal mass on CT chest/abd/pelvis performed 08/05/24. There was Right supraclavicular lymphadenopathy. Patient underwent Right supraclavicular lymph node biopsy on 08/07/24 by IR. We await pathology. suspicion for lymphoma. (2) Iron deficiency anemia: Code(s): D50.9 - Iron deficiency anemia, unspecified Status: Acute Assessment and Plan: Presented with low iron saturations, ferritin was high but could be elevated due to inflammation (?cancer). GI attempted colonoscopy on 08/08/24 which was poor prep with hard stool and procedure was aborted. Plan is to give water enemas in the and sunday and second attempt will be made on sunday08/12/24. EGD showed hiatal hernia. Subjective Date/time seen: 08/11/24 19:28 Interval history: No overnight events. Patient resting and seen at bedside. States that she had some loose bowel movements today. Review of Systems Review of Systems States that she feels ill for a while. She has been laying in bed with no energy since 03/2024. Has bed sores per patient. Denies chest pain, dyspnea, cough or hemoptysis. Denies nausea and vomiting. She is getting water enema for impending colonoscopy on 08/12/24. Exam Narrative: Alert and orientedx3, ill appearing female in no acute distress HEENT: PERRL, EOMI CV: RRR, no m/g/r RESP: CTAB ABD: Soft, NT, ND, BS+ EXT: no cyanosis. Objective Data Vital Signs Vital Signs: Vital Signs - 24 hr 08/10/24 20:36 08/10/24 22:00 08/11/24 06:00 Temperature 36.2 C L 36.3 C L Pulse Rate 96 87 Respiratory Rate 20 16 Blood Pressure 107/64 108/63 Pulse Oximetry 100 96 99 Oxygen Delivery Room Air Fraction of Inspired Oxygen 08/11/24 08:00 08/11/24 14:00 Temperature 36.9 C Pulse Rate 82 Respiratory Rate 20 Blood Pressure 118/72 Pulse Oximetry 100 Oxygen Delivery Room Air Fraction of Inspired Oxygen Intake/Output Intake/Output: Intake & Output 08/08/24 08/09/24 08/10/24 08/11/24 23:59 23:59 23:59 23:59 Intake Total 1240 1498 2240 1820 Balance 1240 1498 2240 1820 Meds/Results Medications: Active Medications Generic Name Dose Route Start Last Admin Trade Name Freq PRN Reason Stop Dose Admin Acetaminophen 650 mg 08/05/24 15:39 08/10/24 22:33 Acetaminophen 325 Mg Tablet PO 650 mg Q6H PRN Administration Mild Pain (1-3) or Fever Calcium Carbonate 200 mg 08/09/24 12:32 Calcium Carbonate (Tums) 500 Mg (200 Mg Elemental) PO Q6H PRN Indigestion Cephalexin HCl 500 mg 08/07/24 12:35 08/11/24 08:12 Cephalexin 500 Mg Capsule PO 08/11/24 21:01 500 mg Q12HR KANNAN Administration Magnesium Citrate 300 ml 08/11/24 23:00 Magnesium Citrate 300 Ml Btl PO 08/11/24 23:01 ONCE ONE Radiology Results: ITS Impressions Chest X-Ray 08/05/24 10:51 IMPRESSION: No focal infiltrate or effusion. Asymmetric enlargement of the superior mediastinum representing either lymphadenopathy versus intrathoracic extension of the thyroid gland for which cross-sectional imaging (noncontrast enhanced CT examination of the chest) may be performed for further evaluation, when the patient is clinically able. Chest/Abdomen/Pelvis CT 08/05/24 12:05 IMPRESSION: Large middle mediastinal mass containing bulky calcifications and demonstrating contrast enhancement. Significant lymphadenopathy is identified within the right supraclavicular lymph node station. Right hilar lymphadenopathy is also noted. Scattered pathologically enlarged and morphologically suspicious lymph nodes within the base of the neck. The left lobe of the thyroid gland is heterogeneous and contains bulky calcifications. Findings within the pelvis suggesting fecal impaction, as detailed above. Lymph Node Biopsy Ultrasound 08/07/24 13:09 IMPRESSION: 1. Successful Ultrasound-guided biopsy of 4.2 x 2.2 x 2.6 cm right supraclavicular lymph node.
[2024-08-11] MEDS: MAGNESIUM CITRATE 300 ML BTL PO (20:34)
[2024-08-11 21:46] VITALS: BP 108/73; PULSE 91; RESP 14; TEMP 36.6; O2SAT 99
[2024-08-12 06:00] VITALS: BP 118/65; PULSE 85; RESP 18; TEMP 36.9; O2SAT 99
[2024-08-12 08:00] VITALS: PULSE 8; O2SAT 99
--- NOTE | 2024-08-12 10:22 | SUR.PREOP ---
Informed Dr. Trejo, per [facility] Tatum patient is still having brown stools. Per Dr. Trejo, cancel procedure for today and order regular diet for patient.
--- NOTE | 2024-08-12 12:58 | PM.IMPN ---
Progress Note: A&P Assessment and Plan (1) Sepsis: Qualifiers: Sepsis acute organ dysfunction status: without acute organ dysfunction Sepsis type: sepsis due to unspecified organism Qualified Code(s): A41.9 - Sepsis, unspecified organism Code(s): A41.9 - Sepsis, unspecified organism Status: Acute (2) Urinary tract infection: Code(s): N39.0 - Urinary tract infection, site not specified Status: Acute (3) Mediastinal mass: Code(s): J98.59 - Other diseases of mediastinum, not elsewhere classified Status: Acute (4) Decubitus ulcer of ischium, stage 2: Qualifiers: Laterality: left Qualified Code(s): L89.322 - Pressure ulcer of left buttock, stage 2 Code(s): L89.302 - Pressure ulcer of unspecified buttock, stage 2 Status: Acute (5) Abnormal imaging of thyroid: Code(s): R93.89 - Abnormal findings on diagnostic imaging of other specified body structures Status: Acute (6) Fecal impaction: Code(s): K56.41 - Fecal impaction Status: Acute Plan The patient presented to the emergency department with complaints of weakness and unintentional weight loss # Severe sepsis AND UTI She meets sepsis criteria with tachycardia, tachypnea, leukocytosis, and elevated lactic acid level resulting from urinary tract infection. received 30 mL/kg IV fluid bolus in the ED with elevation of her lactic acid level. Hypotension upon arrival to the ED Received fluid resuscitation blood pressure became stable Blood pressures have been running at the lower end of normal but are stable. Blood and urine cultures are pending. received cefepime 2 g and vancomycin 1000 mg in the ED changed to ceftriaxone 1 g Q 24 hours and vancomycin to cover for urinary tract infection and possible infection of the left hip decubitus ulcer. Concluded cephalexin # infection of the left hip decubitus ulcer. abx see above consult wound care # Large middle mediastinal mass CT scan shows a large medial mediastinal mass ultrasound-guided biopsy of a supraclavicular lymph node per shoe ironer consult electric serviceman oncologist. hematology oncologist considers lymphoma versus metastatic disease, pending biopsy of right supraclavicular lymph node # Severe anemia Hemoglobin 5.4 on 08/06/2024 Blood pressure low Status post PRBC transfusion Which in is stable since then Transfuse p.r.n. Follow-up stool guaiac, iron panel, haptoglobin, reticulocyte, iron panel Consult GI for evaluation treatment FOBT came back negative Iron studies with anemia of chronic disease Status post EGD 08/08/2024: Hiatal hernia Status post colonoscopy 08/08/2024: Poor prep. Plan to re-attempt schedule today has been postponed due to poor prep # Patient has physical deconditioning, severe malnutrition, Patient has difficulty moving her out off bed Consult dietitian for supplement Consult PT OT social organization professor for evaluation, patient may benefit from prison placement # Hypokalemia, potassium 2.7 Replete with potassium chloride 40 mEq IV once and 40 mg p.o. once Follow-up BMP # code status to be DO NOT RESUSCITATE Await prison placement Subjective Date/time seen: 08/12/24 12:58 Interval history: No overnight events. Patient still has brown stool and hence colonoscopy has been postponed today. Review of Systems Review of Systems: All systems reviewed & are unremarkable except as noted in HPI and below Exam Narrative: GENERAL: Thin built, cachectic in no acute distress. Well-nourished. - EYES: EOMI. Anicteric. - HENT: Moist mucous membranes. - LUNGS: Clear to auscultation bilaterally, no wheezing, rhonchi, or rales. - CARDIOVASCULAR: Regular rate and rhythm. No murmur. No JVD. - ABDOMEN: Soft, non-tender and non-distended. No palpable masses. - EXTREMITIES: No edema. Peripheral pulses 2+. Non-tender. - NEUROLOGIC: No focal neurological deficits. CN II-XII grossly intact. - PSYCHIATRIC: Awake, Alert and oriented x 3. Appropriate mood and affect. - SKIN: Stage II sacral decubitus ulcer - LYMPH: No cervical lymphadenopathy. Objective Data Vital Signs Vital Signs: Vital Signs - 24 hr 08/11/24 14:00 08/11/24 21:46 08/12/24 06:00 Temperature 98.5 F 97.9 F 98.4 F Pulse Rate 82 91 85 Respiratory Rate 20 14 18 Blood Pressure 118/72 108/73 118/65 Pulse Oximetry 100 99 99 Oxygen Delivery 08/12/24 08:00 Temperature Pulse Rate 8 L Respiratory Rate Blood Pressure Pulse Oximetry 99 Oxygen Delivery Room Air Intake/Output Intake/Output: Intake & Output 08/09/24 08/10/24 08/11/2422/25 23:59 23:59 23:59 23:59 Intake Total 1498 2240 1820 Balance 1498 2240 1820 Meds/Results Medications: Active Medications Generic Name Dose Route Start Last Admin Trade Name Freq PRN Reason Stop Dose Admin Acetaminophen 650 mg 08/05/24 15:39 08/10/24 22:33 Acetaminophen 325 Mg Tablet PO 650 mg Q6H PRN Administration Mild Pain (1-3) or Fever Calcium Carbonate 200 mg 08/09/24 12:32 Calcium Carbonate (Tums) 500 Mg (200 Mg Elemental) PO Q6H PRN Indigestion Radiology Results: ITS Impressions Chest X-Ray 08/05/24 10:51 IMPRESSION: No focal infiltrate or effusion. Asymmetric enlargement of the superior mediastinum representing either lymphadenopathy versus intrathoracic extension of the thyroid gland for which cross-sectional imaging (noncontrast enhanced CT examination of the chest) may be performed for further evaluation, when the patient is clinically able. Chest/Abdomen/Pelvis CT 08/05/24 12:05 IMPRESSION: Large middle mediastinal mass containing bulky calcifications and demonstrating contrast enhancement. Significant lymphadenopathy is identified within the right supraclavicular lymph node station. Right hilar lymphadenopathy is also noted. Scattered pathologically enlarged and morphologically suspicious lymph nodes within the base of the neck. The left lobe of the thyroid gland is heterogeneous and contains bulky calcifications. Findings within the pelvis suggesting fecal impaction, as detailed above. Lymph Node Biopsy Ultrasound 08/07/24 13:09 IMPRESSION: 1. Successful Ultrasound-guided biopsy of 4.2 x 2.2 x 2.6 cm right supraclavicular lymph node.
[2024-08-12 13:57] VITALS: BP 123/70; PULSE 98; RESP 12; TEMP 36.7; O2SAT 98
--- NOTE | 2024-08-12 19:32 | WPDONCPN ---
Progress Note: A&P Assessment and Plan (1) Mediastinal mass: Code(s): J98.59 - Other diseases of mediastinum, not elsewhere classified Status: Acute Assessment and Plan: Patient with large mediastinal mass on CT chest/abd/pelvis performed 08/05/24. There was Right supraclavicular lymphadenopathy. Patient underwent Right supraclavicular lymph node biopsy on 08/07/24 by IR. We await pathology. suspicion for lymphoma. She can be discharged from hematology perspective and can follow up with Dr. Shelton as outpatient to discuss the results of the pathology (2) Iron deficiency anemia: Code(s): D50.9 - Iron deficiency anemia, unspecified Status: Acute Assessment and Plan: Presented with low iron saturations, ferritin was high but could be elevated due to inflammation (?cancer). GI attempted colonoscopy on 08/08/24 which was poor prep with hard stool and procedure was aborted. She was not able to get clear stools after few days of prep and plans of repeat colonoscopy are not aborted. Subjective Date/time seen: 08/12/24 19:32 Interval history: Patient resting comfortably. Plans of colonoscopy has been aborted as patient was not able to clear bowels by colon prep. Review of Systems Review of Systems Patient is disheartened that colonoscopy is now not to be done. States she is not getting up from bed as has no energy. Denies chest pain, dyspnea, cough or hemoptysis. Denies nausea and vomiting. States that her bottom is raw from all the colon prep and lying in bed for a while. Rest of 12 point ROS is negative. Exam Narrative: Alert and orientedx3, ill appearing female in no acute distress HEENT: PERRL, EOMI CV: RRR, no m/g/r RESP: CTAB ABD: Soft, NT, ND, BS+ EXT: no cyanosis. Objective Data Vital Signs Vital Signs: Vital Signs - 24 hr 08/11/24 21:46 08/12/24 06:00 08/12/24 08:00 Temperature 36.6 C 36.9 C Pulse Rate 91 85 8 L Respiratory Rate 14 18 Blood Pressure 108/73 118/65 Pulse Oximetry 99 99 99 Oxygen Delivery Room Air 08/12/24 13:57 Temperature 36.7 C Pulse Rate 98 Respiratory Rate 12 Blood Pressure 123/70 Pulse Oximetry 98 Oxygen Delivery Intake/Output Intake/Output: Intake & Output 08/09/24 08/10/24 08/11/24 08/12/24 23:59 23:59 23:59 23:59 Intake Total 1498 2240 1820 1240 Output Total 5 Balance 1498 2240 1820 1235 Meds/Results Medications: Active Medications Generic Name Dose Route Start Last Admin Trade Name Freq PRN Reason Stop Dose Admin Acetaminophen 650 mg 08/05/24 15:39 08/10/24 22:33 Acetaminophen 325 Mg Tablet PO 650 mg Q6H PRN Administration Mild Pain (1-3) or Fever Calcium Carbonate 200 mg 08/09/24 12:32 Calcium Carbonate (Tums) 500 Mg (200 Mg Elemental) PO Q6H PRN Indigestion Radiology Results: ITS Impressions Chest X-Ray 08/05/24 10:51 IMPRESSION: No focal infiltrate or effusion. Asymmetric enlargement of the superior mediastinum representing either lymphadenopathy versus intrathoracic extension of the thyroid gland for which cross-sectional imaging (noncontrast enhanced CT examination of the chest) may be performed for further evaluation, when the patient is clinically able. Chest/Abdomen/Pelvis CT 08/05/24 12:05 IMPRESSION: Large middle mediastinal mass containing bulky calcifications and demonstrating contrast enhancement. Significant lymphadenopathy is identified within the right supraclavicular lymph node station. Right hilar lymphadenopathy is also noted. Scattered pathologically enlarged and morphologically suspicious lymph nodes within the base of the neck. The left lobe of the thyroid gland is heterogeneous and contains bulky calcifications. Findings within the pelvis suggesting fecal impaction, as detailed above. Lymph Node Biopsy Ultrasound 08/07/24 13:09 IMPRESSION: 1. Successful Ultrasound-guided biopsy of 4.2 x 2.2 x 2.6 cm right supraclavicular lymph node.
[2024-08-12 22:00] VITALS: BP 108/67; PULSE 64; RESP 14; TEMP 36.7; O2SAT 97
[2024-08-13 06:00] VITALS: BP 109/58; PULSE 77; RESP 14; TEMP 36.4; O2SAT 98
[2024-08-13 08:00] VITALS: O2SAT 98
[2024-08-13] MEDS: RIZATRIPTAN BENZOATE 10 MG ODT PO (09:45)
[2024-08-13 10:00] VITALS: BP 110/68; PULSE 84; RESP 18; TEMP 36.8; O2SAT 100
--- NOTE | 2024-08-13 13:48 | P.PNIM_ITS ---
Progress Note: A&P Assessment and Plan (1) Sepsis: Qualifiers: Sepsis acute organ dysfunction status: without acute organ dysfunction Sepsis type: sepsis due to unspecified organism Qualified Code(s): A41.9 - S epsis, unspecified organism Code(s): A41.9 - Sepsis, unspecified organism Status: Acute (2) Urinary tract infection: Code(s): N39.0 - Urinary tract infection, site not specified Status: Acute (3) Mediastinal mass: Code(s): J98.59 - Other diseases of mediastinum, not elsewhere classified Status: Acute (4) Decubitus ulcer of ischium, stage 2: Qualifiers: Laterality: left Qualified Code(s): L89.322 - Pressure ulcer of left buttock, stage 2 Code(s): L89.302 - Pressure ulcer of unspecified buttock, stage 2 Status: Acute (5) Abnormal imaging of thyroid: Code(s): R93.89 - Abnormal findings on diagnostic imaging of other specified body structures Status: Acute (6) Fecal impaction: Code(s): K56.41 - Fecal impaction Status: Acute Plan The patient presented to the emergency department with complaints of weakness and unintentional weight loss Severe sepsis AND UTI She meets sepsis criteria with tachycardia, tachypnea, leukocytosis, and elevated lactic acid level resulting from urinary tract infection. received 30 mL/kg IV fluid bolus in the ED with elevation of her lactic acid level. Hypotension upon arrival to the ED Received fluid resuscitation blood pressure became stable Blood pressures have been running at the lower end of normal but are stable. Blood and urine cultures are pending. received cefepime 2 g and vancomycin 1000 mg in the ED changed to ceftriaxone 1 g Q 24 hours and vancomycin to cover for urinary tract infection and possible infection of the left hip decubitus ulcer. Completed cephalexin infection of the left hip decubitus ulcer. abx see above consult wound care Large middle mediastinal mass CT scan shows a large medial mediastinal mass ultrasound-guided biopsy of a supraclavicular lymph node per applications manager consult fermentation manager oncologist. hematology oncologist considers lymphoma versus metastatic disease, pending biopsy of right supraclavicular lymph node Oncologist will follow up patient in the office Severe anemia Hemoglobin 5.4 on 08/06/2024 Blood pressure low Status post PRBC transfusion Which in is stable since then Transfuse p.r.n. Follow-up stool guaiac, iron panel, haptoglobin, reticulocyte, iron panel Consult GI for evaluation treatment FOBT came back negative Iron studies with anemia of chronic disease Status post EGD 08/08/2024: Hiatal hernia GI cannot perform colonoscopy because of poor preparation, resume regular diet per GI Patient has physical deconditioning, severe malnutrition, Patient has difficulty moving her out off bed Consult dietitian for supplement Consult PT OT social service worker for evaluation Hypokalemia, potassium 2.7 Replete with potassium chloride 40 mEq IV once and 40 mg p.o. once Follow-up BMP Corrected code status to be DO NOT RESUSCITATE Patient is accepted by detention. patient will be discharged to [facility] for rehab Subjective Date/time seen: 08/13/24 13:48 Interval history: I saw examined patient today, patient feels comfortable. Denies abdomen pain chest pain shortness breath diarrhea. Patient cannot and finish colonoscopy Exam Narrative: GENERAL: Frail, cachectic in no acute distress. Well-nourished. - EYES: EOMI. Anicteric. - HENT: Moist mucous membranes. - LUNGS: Clear to auscultation bilateral ly, no wheezing, rhonchi, or rales. - CARDIOVASCULAR: Regular rate and rhyth m. No murmur. No JVD. - ABDOMEN: Soft, non-tender and non-dist ended. No palpable masses. - EXTREMITIES: No edema. Peripheral puls es 2+. Non-tender. - NEUROLOGIC: No focal neurological defi cits. CN II-XII grossly intact. - PSYCHIATRIC: Awake, Alert and oriented x 3. Appropriate mood and affect. - SKIN: Stage II sacral decubitus ulcer - LYMPH: No cervical lymphadenopathy. Objective Data Vital Signs Vital Signs: Vital Signs - 24 hr 08/12/24 13:57 08/12/24 22:00 08/13/24 06:00 Temperature 98.1 F 98.1 F 97.5 F L Pulse Rate 98 64 77 Respiratory Rate 12 14 14 Blood Pressure 123/70 108/67 109/58 L Pulse Oximetry 98 97 98 Oxygen Delivery 08/13/24 08:00 08/13/24 10:00 Temperature 98.2 F Pulse Rate 84 Respiratory Rate 18 Blood Pressure 110/68 Pulse Oximetry 98 100 Oxygen Delivery Room Air Intake/Output Intake/Output: Intake & Output 08/10/24 08/11/24 08/12/24 08/13/24 23:59 23:59 23:59 23:59 Intake Total 2240 1820 1240 250 Output Total 5 Balance 2240 1820 1235 250 Meds/Results Medications: Active Medications Generic Name Dose Route Start Last Admin Trade Name Freq PRN Reason Stop Dose Admin Acetaminophen 650 mg 08/05/24 15:39 08/10/24 22:33 Acetaminophen 325 Mg Tablet PO 650 mg Q6H PRN Administration Mild Pain (1-3) or Fever Calcium Carbonate 200 mg 08/09/24 12:32 Calcium Carbonate (Tums) 500 Mg (200 Mg Elemental) PO Q6H PRN Indigestion Radiology Results: ITS Impressions Chest X-Ray 08/05/24 10:51 IMPRESSION: No focal infiltrate or effusion. Asymmetric enlargement of the superior mediastinum representing either lymphadenopathy versus intrathoracic extension of the thyroid gland for which cross-sectional imaging (noncontrast enhanced CT examination of the chest) may be performed for further evaluation, when the patient is clinically able. Chest/Abdomen/Pelvis CT 08/05/24 12:05 IMPRESSION: Large middle mediastinal mass containing bulky calcifications and demonstrating contrast enhancement. Significant lymphadenopathy is identified within the right supraclavicular lymph node station. Right hilar lymphadenopathy is also noted. Scattered pathologically enlarged and morphologically suspicious lymph nodes within the base of the neck. The left lobe of the thyroid gland is heterogeneous and contains bulky calcifications. Findings within the pelvis suggesting fecal impaction, as detailed above. Lymph Node Biopsy Ultrasound 08/07/24 13:09 IMPRESSION: 1. Successful Ultrasound-guided biopsy of 4.2 x 2.2 x 2.6 cm right supraclavicular lymph node.
[2024-08-13 14:00] VITALS: BP 117/66; PULSE 93; RESP 14; TEMP 36.7; O2SAT 100
[2024-08-13] MEDS: CALCIUM CARBONATE (TUMS) 500 MG (200 MG ELEMENTAL) PO (15:59)
--- NOTE | 2024-08-13 16:17 | P.DS_ITS ---
DS: Admitting Diagnosis Discharge Date 08/13/24 Admitting Diagnosis (1) Sepsis: Qualifiers: Sepsis acute organ dysfunction status: without acute organ dysfunction Sepsis type: sepsis due to unspecified organism Qualified Code(s): A41.9 - Sepsis, unspecified organism Code(s): A41.9 - Sepsis, unspecified organism Status: Acute (2) Urinary tract infection: Code(s): N39.0 - Urinary tract infection, site not specified Status: Acute (3) Mediastinal mass: Code(s): J98.59 - Other diseases of mediastinum, not elsewhere classified Status: Acute (4) Decubitus ulcer of ischium, stage 2: Qualifiers: Laterality: left Qualified Code(s): L89.322 - Pressure ulcer of left buttock, stage 2 Code(s): L89.302 - Pressure ulcer of unspecified buttock, stage 2 Status: Acute (5) Abnormal imaging of thyroid: Code(s): R93.89 - Abnormal findings on diagnostic imaging of other specified body structures Status: Acute (6) Fecal impaction: Code(s): K56.41 - Fecal impaction Status: Acute DS: Discharge Diagnosis Discharge Diagnosis (1) Sepsis: Qualifiers: Sepsis acute organ dysfunction status: without acute organ dysfunction Sepsis type: sepsis due to unspecified organism Qualified Code(s): A41.9 - Sepsis, unspecified organism Code(s): A41.9 - Sepsis, unspecified organism Status: Acute (2) Urinary tract infection: Code(s): N39.0 - Urinary tract infection, site not specified Status: Acute (3) Mediastinal mass: Code(s): J98.59 - Other diseases of mediastinum, not elsewhere classified Status: Acute (4) Decubitus ulcer of ischium, stage 2: Qualifiers: Laterality: left Qualified Code(s): L89.322 - Pressure ulcer of left buttock, stage 2 Code(s): L89.302 - Pressure ulcer of unspecified buttock, stage 2 Status: Acute (5) Abnormal imaging of thyroid: Code(s): R93.89 - Abnormal findings on diagnostic imaging of other specified body structures Status: Acute (6) Fecal impaction: Code(s): K56.41 - Fecal impaction Status: Acute DS: Summary Hospital Course Hospital Course: The patient presented to the emergency department with complaints of weakness and unintentional weight loss The following med issues have been addressed during hospitalization Severe sepsis AND UTI She meets sepsis criteria with tachycardia, tachypnea, leukocytosis, and elevated lactic acid level resulting from urinary tract infection. received 30 mL/kg IV fluid bolus in the ED with elevation of her lactic acid level. Hypotension upon arrival to the ED Received fluid resuscitation blood pressure became stable Blood pressures have been running at the lower end of normal but are stable. Blood and urine cultures are pending. received cefepime 2 g and vancomycin 1000 mg in the ED changed to ceftriaxone 1 g Q 24 hours and vancomycin to cover for urinary tract infection and possible infection of the left hip decubitus ulcer. Completed cephalexin infection of the left hip decubitus ulcer. abx see above consult wound care Large middle mediastinal mass CT scan shows a large medial mediastinal mass ultrasound-guided biopsy of a supraclavicular lymph node per appeals representative consult chemical instrumentation officer oncologist. hematology oncologist considers lymphoma versus metastatic disease, pending biopsy of right supraclavicular lymph node Oncologist will follow up patient in the office Severe anemia Hemoglobin 5.4 on 08/06/2024 Blood pressure low Status post PRBC transfusion Which in is stable since then Transfuse p.r.n. Follow-up stool guaiac, iron panel, haptoglobin, reticulocyte, iron panel Consult GI for evaluation treatment FOBT came back negative Iron studies with anemia of chronic disease Status post EGD 08/08/2024: Hiatal hernia GI cannot perform colonoscopy because of poor preparation, resume regular diet per GI Patient has physical deconditioning, severe malnutrition, Patient has difficulty moving her out off bed Consult dietitian for supplement Consult PT OT social staff worker for evaluation Hypokalemia, potassium 2.7 Replete with potassium chloride 40 mEq IV once and 40 mg p.o. once Follow-up BMP Corrected Severe malnutrition Possible due to malignancy Provide Ensure p.o. code status to be DO NOT RESUSCITATE Patient is accepted by [facility]. patient will be discharged to [facility] for rehab Time Spent with Patient Time attestation: Total time spent providing and/or coordinating discharge services: Exam Narrative: GENERAL: Frail, cachectic in no acute distress. Well-nourished. - EYES: EOMI. Anicteric. - HENT: Moist mucous membranes. - LUNGS: Clear to auscultation bilateral ly, no wheezing, rhonchi, or rales. - CARDIOVASCULAR: Regular rate and rhyth m. No murmur. No JVD. - ABDOMEN: Soft, non-tender and non-dist ended. No palpable masses. - EXTREMITIES: No edema. Peripheral puls es 2+. Non-tender. - NEUROLOGIC: No focal neurological defi cits. CN II-XII grossly intact. - PSYCHIATRIC: Awake, Alert and oriented x 3. Appropriate mood and affect. - SKIN: Stage II sacral decubitus ulcer - LYMPH: No cervical lymphadenopathy. Discharge Plan Discharge Attending physician on discharge: Gerardo Dhaliwal Consulting providers: Vlad Shleton; Marco A Trejo Discharging Clinician: Gerardo Dhaliwal Anticipated Discharge Date/Time: 08/13/24 16:14 Patient Disposition: SNF Activity: as tolerated Diet: as tolerated and heart healthy Patient Language: Turkmen Stand Alone Forms: General Discharge Information Follow-up/Referrals: Vlad Shelton MD [Physician] - (Patient needs to see heme oncologist in the office at scheduled appointment) Raymond,Hector Prescott [Primary Care Provider] - (Patient needs to see primary care provider in 1 week) Marco A Trejo MD [Physician] - (Patient needs to call GI for follow-up appointment) Discharge Medications: New Ensure Active High Protein Liquid 1 ea PO DAILY 30 Days Qty: 83660 0RF polyethylene glycol 3350 [Miralax] 17 gram powder in packet 17 g PO DAILY PRN (Reason: constipation) Qty: 30 0RF acetaminophen 325 mg Tablet 650 mg PO Q6H PRN (Reason: Mild Pain (1-3) Or Fever) Qty: 30 0RF calcium carbonate 500 mg calcium (1,250 mg) Tablet,Chewable 200 mg PO TID PRN (Reason: Indigestion) Qty: 90 0RF No Action No Home Medications Date of admission: 08/05/24 16:52 Primary Care Provider: LindseyHector Admitting Provider: Sonia Plascencia Attending physician on admission: Sonia Plascencia Condition: Stable
[2024-08-13 20:05] VITALS: PULSE 93; RESP 14; O2SAT 100
[2024-08-13 20:59] VITALS: BP 107/70; PULSE 90; RESP 18; TEMP 36.4; O2SAT 96
== END 2024-08-13 21:27 | DRG 853 ==
LOC: ANHED 12:52 → ANH3MEDSUR 15:03
PROVIDERS: Emergency Medicine; Internal Medicine; Internal Medicine Gastroenterology; Physician Assistant; Admitting Provider Internal Medicine; Emergency Provider Physician Assistant; PCP Physician Assistant; Visit Provider Hospitalist
PROC: 0DJ08ZZ Inspection of Upper Intestinal Tract, Via Natural or Artificial Opening Endoscopic (ICD-10-PCS; CPT 45378; principal; 2024-08-08 15:30)
DX: A41.9 Sepsis, unspecified organism (principal); E43 Unspecified severe protein-calorie malnutrition; J98.59 Other diseases of mediastinum, not elsewhere classified; N39.0 Urinary tract infection, site not specified; Z68.1 Body mass index [BMI] 19.9 or less, adult; L03.317 Cellulitis of buttock; L89.322 Pressure ulcer of left buttock, stage 2; E88.A Wasting disease (syndrome) due to underlying condition; R65.20 Severe sepsis without septic shock; K56.41 Fecal impaction; E87.6 Hypokalemia; Z53.09 Procedure and treatment not carried out because of other contraindication; R93.89 Abnormal findings on diagnostic imaging of other specified body structures; I10 Essential (primary) hypertension; D50.9 Iron deficiency anemia, unspecified; Z66 Do not resuscitate; K44.9 Diaphragmatic hernia without obstruction or gangrene; D63.8 Anemia in other chronic diseases classified elsewhere
CPT/HCPCS: 36415; 36430; 38505; 71046; 71260; 74177; 76942; 80048; 80053; 81001; 82274; 82565; 82728; 83010; 83540; 83550; 83605; 83735; 84439; 84443; 84480; 84484; 85025; 85027; 85046; 85610; 85730; 86140; 86850; 86900; 86901; 86923; 87040; 87086; 87186; 87637; 88184; 88305; 88342; 93005; 96365; 96367; 97110; 97162; 97166; 99285; A9270; G0378; J0692; J0696; J1756; J2003; J2704; J3370; J3480; J7030; J7040; J7050; J7120; P9016; Q9967